=== PATIENT | male | born 1935 | race Caucasian/White ===

== ENCOUNTER 2021-09-12 14:42 | Emergency (ER) | payer MEDICARE, MEDICAID, SELFPAY ==
[2021-09-12 14:43] VITALS: BP 121/103; PULSE 57; RESP 16; TEMP 36.6; O2SAT 100; BMI 34.8
--- NOTE | 2021-09-12 15:02 | EDS_ITS ---
HPI <PEDRITO Perales - Last Filed: 09/12/21 17:01> History of Present Illness Chief Complaint: Constipation Narrative Narrative: 86-year-old male with history of hypertension, hyperlipidemia, atrial fibrillation on Coumadin presents to the emergency department with 3 days of inability to have a bowel movement. Patient states he has having rectal pain, he is not passing gas, and states he is here. Patient has had some like this in the past and needed an enema. He does not take stool softeners daily, patient did take stool softeners, 4 pills the last 2 days however this did not help. Patient denies any fevers, chills, patient denies any rectal bleeding. [facility] <PEDRITO Perales - Last Filed: 09/12/21 17:01> [facility] Medical History (Updated 09/12/21 @ 17:01 by PEDRITO Perales) A-fib High cholesterol HTN (hypertension) Home Medications magnesium citrate 150 ml PO DAILY #296 ml 09/12/21 [Rx Last Taken Unknown] polyethylene glycol 3350 [Miralax] 17 g PO BID #119 g 09/12/21 [Rx Last Taken Unknown] Allergy/AdvReac Type Severity Reaction Status Date / Time No Known Allergies Allergy Verified 09/12/21 14:44 Social History Smoking Status: Never smoker ROS <PEDRITO Perales - Last Filed: 09/12/21 17:01> ROS ED ROS Narrative Constitutional: Negative for fever, chills, weight loss or gain, weakness Eyes: Negative for vision loss, vision change, double vision ENT: Negative for any hearing changes, ringing in the ears, discharge, pain Nose: Negative for any congestion, runny nose, sinus pain, allergies Throat: Negative for any sore throat, swelling, voice changes, Cardiovascular: Negative for any chest pain, tightness, palpitations, racing heartbeat Respiratory: Negative for any cough, sputum production, hemoptysis, shortness of breath, shortness of breath on exertion, Gastrointestinal: Negative for any abdominal pain, nausea, vomiting, diarrhea,blood in stool, blood in vomit. Positive for constipation : Negative for any urinary frequency, incontinence, dysuria, retention, blood in urine Muscle skeletal: Negative for any muscle joint pain, stiffness, myalgias, arthralgias, neck pain, back pain Neurological: Negative for any headache, dizziness, syncope, numbness or tingling Skin: Negative for any rashes, lumps, itching, abrasions, lacerations Psychiatric: Negative for any depression, anxiety, stress, suicidal ideation, homicidal ideation Hematologic: Negative for any easy bruising, excessive bruising, easy bleeding Allergies: Negative for any eczema, hives, rash EXAM <PEDRITO Perales - Last Filed: 09/12/21 17:01> Physical Exam Const Vital Signs: 09/12/21 14:43 09/12/21 17:00 Temperature 97.8 F Temperature Source Temporal Pulse Rate 57 L Respiratory Rate 16 16 Blood Pressure 121/103 H Blood Pressure Mean 109 Pulse Ox 100 Oxygen Delivery Method Room Air Positive well nourished and well developed General Appearance ED: well developed HEENT Negative for trauma Eyes PERRL and EOMs intact bilaterally Neck no lymphadenopathy and supple Chest Wall inspection of chest normal and palpation of chest normal Resp normal respiratory effort and clear to auscultation bilaterally Cardio regular rate and regular rhythm GI normal to inspection, nondistended, normoactive bowel sounds, non-tender, non- distended and no masses GI Narrative: Patient denies any abdominal pain, states most the pain is in his rectal area Auscultation: normoactive bowel sounds Palpation: soft Back/Spine no CVA tenderness Extremity normal to inspection Neuro oriented x3 Sensorium / Orientation: alert Psych mental status grossly normal Skin no rashes or lesions noted <Dr. Geraldine Graham MD - Last Filed: 09/12/21 18:37> Physical Exam Const Vital Signs: 09/12/21 14:43 09/12/21 17:00 Temperature 97.8 F Temperature Source Temporal Pulse Rate 57 L Respiratory Rate 16 16 Blood Pressure 121/103 H Blood Pressure Mean 109 Pulse Ox 100 Oxygen Delivery Method Room Air MDM <PEDRITO Perales - Last Filed: 09/12/21 17:01> [facility] Narrative Medical decision making narrative: Patient appears well, patient appears nontoxic, vital signs are stable. Patient presents emerged part with 3 days of no bowel movement. Patient's physical exam was unremarkable, patient received a KUB abdominal x-ray which did show constipation. I was able to digitally disimpact the patient however due to the stool being so high up, only small amounts were discarded. Patient did receive a soapsuds enema, however due to the patient not being able to hold in the fluid, it was not as successful. Patient states he is cramping, does feel like he has to go, patient will be prescribed magnesium citrate, he will go home follow the instructions and will follow up with PCP. Patient instructed to take MiraLAX daily to prevent this on having in the future. Patient will follow up with his PCP instructed return for any worsening symptoms Radiography Diagnostic Testing: Clinical Impression(s) from Imaging Studies KUB X-Ray 09/12/21 15:07 IMPRESSION: Large amount of retained stool in the sigmoid and rectum with no evidence of bowel obstruction. Multilevel thoracolumbar spondylosis and minimal levoscoliosis. 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 Diffuse osteopenia. Electronically Signed: Carlos Glass MD at 15:42 EDT , <Dr. Geraldine Graham MD - Last Filed: 09/12/21 18:37> MDM Radiography Diagnostic Testing: Clinical Impression(s) from Imaging Studies KUB X-Ray 09/12/21 15:07 IMPRESSION: Large amount of retained stool in the sigmoid and rectum with no evidence of bowel obstruction. Multilevel thoracolumbar spondylosis and minimal levoscoliosis. 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 Diffuse osteopenia. Electronically Signed: Carlos Glass MD at 15:42 EDT , Treatment and Re-Evaluation Narrative: Patient seen and evaluated with VALERIE. I personally interviewed and examined the patient. I was involved in all aspects of patient's orders, interpretation of results, and treatment. Patient presents secondary to constipation. Reports constipation for the past couple of days. No significant abdominal pain. He reports only one prior episode with constipation. Denies recent diet or medication changes. Patient lying in bed no acute distress. Head and neck examination unremarkable. Heart is regular rate and rhythm. Lung sounds are clear. Abdomen is soft and nontender. Active bowel sounds are noted. Abdominal exam reveals stool in the sigmoid and rectum. No evidence of bowel obstruction per my interpretation. Attempted digital disimpaction by nurse practitioner as well as soapsuds enema performed. Patient will use magnesium citrate at home as well. Discharge Plan Triage Chief Complaint: Constipation ED Midlevel Provider: Abner Mcdonald ED Provider: Geraldine Graham Dx/Rx/DC Orders Clinical Impression: Constipation Instructions: Treating Constipation, ED Constipation (Adult) Prescriptions: New magnesium citrate Solution 150 ml PO DAILY Qty: 296 RF: 0 polyethylene glycol 3350 [Miralax] 17 gram/dose powder 17 g PO BID Qty: 119 RF: 0 Primary Care Provider: Yovana Wilson Referrals: Yovana Wilson DO [Primary Care Provider] - Print Language: Armenian Disposition Disposition: Home, Self Care Discharge Date/Time: 09/12/21 17:07
--- NOTE | 2021-09-12 15:07 | RAD_ITS ---
STUDY: X-RAY - ABDOMEN/PELVIS REASON FOR EXAM: Male, 86 years old. constipation TECHNIQUE: 1 view COMPARISON: None. FINDINGS: Please see the impression. RAD/Abdomen Single View IMPRESSION: Large amount of retained stool in the sigmoid and rectum with no evidence of bowel obstruction. Multilevel thoracolumbar spondylosis and minimal levoscoliosis. 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 Diffuse osteopenia. Electronically Signed: Carlos Glass MD at 15:42 EDT ,
[2021-09-12 17:00] VITALS: RESP 16
== END 2021-09-12 17:07 | disposition home or self-care (01) ==
PROVIDERS: Emergency Provider Emergency Medicine; PCP Family Medicine; Visit Provider Emergency Medicine
DX: K59.00 Constipation, unspecified (principal)
CPT/HCPCS: 74018; 99284

== ENCOUNTER 2022-02-27 23:55 | Emergency (ER) | payer MEDICARE, MEDICAID, SELFPAY ==
[2022-02-27 23:56] VITALS: BP 114/77; PULSE 74; RESP 15; TEMP 36.7; O2SAT 97; BMI 27.7
--- NOTE | 2022-02-28 00:24 | EX.ED.DYSGE1 ---
HPI History of Present Illness Chief Complaint: Constipation Informant: patient Narrative Narrative: Patient states he has not been moving his bowels well for 2 or 3 days. He does not think he has had any bowel movement for about 1 day but he is not exactly sure. He has some discomfort at the rectum but no abdominal pain. He is still eating and drinking. No nausea vomiting or fevers. He has had this problem in the past. He took what sounds like a tablespoon of milk of magnesia somewhere earlier today. He took Dulcolax tablets probably 1 or 2 hours ago. He states this is not helped. He is not on a routine bowel regimen although he does have chronic problems with constipation. He is also on Coumadin. He has not had any blood in the stool or bleeding elsewhere. [facility] Medical History A-fib High cholesterol HTN (hypertension) Home Medications magnesium citrate 150 ml PO DAILY #296 mL 09/12/21 [Rx Last Taken Unknown] polyethylene glycol 3350 17 gram/dose oral powder (Miralax) 17 g PO BID #119 grams 09/12/21 [Rx Last Taken Unknown] Allergy/AdvReac Type Severity Reaction Status Date / Time No Known Allergies Allergy Verified 09/12/21 14:44 Social History Smoking Status: Never smoker ROS ROS ED Constitutional Constitutional ED: Denies chills or fever(s) ENT ENT ED: Denies rhinorrhea or sore throat Cardiovascular Cardiovascular: Denies chest pain or palpitations Respiratory/Chest Respiratory/Chest: Denies cough or dyspnea Gastrointestinal Gastrointestinal: Reports constipation; Denies abdominal pain, diarrhea, melena, nausea or vomiting Genitourinary Genitourinary ED: Reports other Details: Denies urinary retention ; Denies dysuria Musculoskeletal Musculoskeletal: Denies back pain Integumentary Denies rash Neurologic Neurologic: Denies headache(s) or weakness Endocrine Endocrinology: Denies polydipsia or polyuria Hematologic/Lymphatic Hematologic/Lymphatic: Reports easy bleeding and easy bruising Allergic/Immunologic Allergic/Immunologic ED: Denies urticaria EXAM Physical Exam Const Vital Signs: 02/27/22 23:56 02/28/22 02:47 Temperature 98.0 F Temperature Source Temporal Pulse Rate 74 76 Respiratory Rate 15 18 Blood Pressure 114/77 Blood Pressure Mean 89 Pulse Ox 97 97 Oxygen Delivery Method Room Air Room Air Positive well nourished and well developed General Appearance ED: well developed and NAD; Negative for cyanotic, diaphoretic or pallor HEENT Reports moist mucous membranes; Denies dry mucous membranes Mouth ED: No dry mucous membranes Mouth: No dry mucous membranes Eyes General Eye ED: Negative for scleral icterus Neck no JVD Chest Wall inspection of chest normal Resp No normal respiratory effort and No clear to auscultation bilaterally Auscultation: Negative for rales, rhonchi, wheezes or diminished lung sounds Cardio regular rate and regular rhythm Rate: other Other Details: He has a history of atrial fibrillation but does sound regular on exam. GI normal to inspection, nondistended, normoactive bowel sounds, non-tender and non-distended GI Narrative: Normal bowel sounds, soft, nontender. No mass. Very benign abdomen. Back/Spine no CVA tenderness Extremity General Extremety ED: Negative for tenderness Neuro Sensorium / Orientation: alert Psych mental status grossly normal Skin General Skin Exam: Negative for pallor MDM MDM MDM Narrative Medical decision making narrative: Procedure: Rectal stool disimpaction and enema: Discussed with patient options. We did do a rectal exam. There are some firm stool. It is really just near the tip of the finger. I really cannot manually get this out although we tried a bit. I was able to pass a lubricated warm tube for a soapsuds enema up a bit past the tip of the stool. This was infused intermittently. He is holding this in at this time. There has been some that leaked out. There is no bleeding at any time. Patient will be rechecked. Patient was gotten up to the bedside commode. He had a very large bowel movement. He feels markedly better. His abdomen is still benign. Is recommend that he stay on a bowel regimen with Dulcolax or MiraLAX daily for the next few days and then slowly wean. If he develops pain fevers or blood in the stool he should return. There was no blood in the bowel movement here. Radiography Diagnostic Testing: Clinical Impression(s) from Imaging Studies KUB X-Ray 02/28/22 00:30 IMPRESSION: Nonobstructive bowel gas pattern. Mild increased stool. Electronically Signed: Jin Nichols MD at 0:46 EDT , Procedures Other Procedures Procedure(s): See medical decision making Discharge Plan Triage Chief Complaint: Constipation ED Provider: Franky Miner Dx/Rx/DC Orders Clinical Impression: Constipation Instructions: ED Constipation (Adult) Prescriptions: No Action magnesium citrate Solution 150 ml PO DAILY Qty: 296 0RF polyethylene glycol 3350 [Miralax] 17 gram/dose powder 17 g PO BID Qty: 119 0RF Primary Care Provider: Yovana Wilson Referrals: Yovana Wilson DO [Primary Care Provider] - 1-2 Days if not improving Activity Restrictions/Additional Instructions: Stay on a stool softener or MiraLAX for the next few days to a week. Slowly wean off. Disposition Disposition: Home, Self Care
--- NOTE | 2022-02-28 00:30 | RAD_ITS ---
STUDY: X-RAY - ABDOMEN/PELVIS REASON FOR EXAM: Male, 86 years old. constipation TECHNIQUE: Single AP view of the abdomen / pelvis. COMPARISON: 322. FINDINGS: Normal visualized lung bases. Nonobstructive bowel gas pattern. Evaluation for free air is limited on supine radiographs. Mild increased stool. Degenerative changes in the bilateral hips and visualized spine, similar compared to the prior. No acute osseous abnormality. RAD/Abdomen Single View IMPRESSION: Nonobstructive bowel gas pattern. Mild increased stool. Electronically Signed: Jin Nichols MD at 0:46 EDT ,
[2022-02-28 02:47] VITALS: PULSE 76; RESP 18; O2SAT 97
[2022-02-28 03:01] VITALS: BP 110/65; PULSE 78; RESP 18; O2SAT 96
== END 2022-02-28 05:31 | disposition home or self-care (01) ==
PROVIDERS: Emergency Provider Emergency Medicine; PCP Family Medicine; Visit Provider Emergency Medicine
DX: K59.00 Constipation, unspecified (principal)
CPT/HCPCS: 74018; 99285

== ENCOUNTER → 2022-12-14 | Outpatient (CLI) | payer MEDICARE, MEDICAID, SELFPAY ==
[2022-12-14 11:26] LABS: Absolute Lymphocyte Count 0.65 X10^3/uL (0.83-4.51); Absolute Neutrophil Count 5.9 X10^3/uL (2.0-7.7); Basophil# 0.05 X10^3/uL; Basophil% 0.7 % (0-1); Eosinophil# 0.07 X10^3/uL; Hematocrit 47.9 % (40-54); Hemoglobin 15.4 g/dL (13.0-16.5); Lymphocyte # 0.65 X10^3/ul (0.83-4.51); Lymphocyte % 8.8 % (19-41); Mean Corp Hgb Conc 32.2 g/dL (32-36); Mean Corpuscular Hgb 29.6 pg (27.0-32.0); Mean Corpuscular Volume 92.1 fL (80-94); Mean Platelet Vol. 10.2 fl (6.2-12.0); Monocyte# 0.69 X10^3/uL; Monocyte% 9.4 % (0-10); NRBC Flagged by Analyzer 0 % (0-5); Neutrophil # 5.86 X10^3/uL (2.7-7.7); Neutrophil % 79.6 % (47-70); Platelet Count 271 K/mm3 (150-450); RBC Distribution Width CV 14.8 % (11.6-14.6); RBC Distribution Width SD 50.4 fl (35.1-43.9); White Blood Count 7.4 K/mm3 (4.4-11.0)
[2022-12-14 11:35] LABS: International Normalized Ratio 1.9
[2022-12-14 12:00] LABS: Anion Gap 6 (5-15); BUN 43 mg/dL (7-18); BUN/Creat Ratio 20.3 RATIO (10-20); Calcium,Total 9.2 mg/dL (8.5-10.1); Chloride 102 mmol/L (98-107); Creatinine, Serum 2.12 mg/dL (0.70-1.30); EST Glomerular Filtration Rate 32 mL/min (>60); Est Glom Filt Rate - Afr Amer 38 mL/min (>60); Glucose 85 mg/dL (74-106); Potassium 3.6 mmol/L (3.5-5.1); Sodium Level 138 mmol/L (136-145); Thyroid Stim Hormone (TSH) 1.42 uIU/mL (0.358-3.74)
== END | disposition home or self-care (01) ==
LOC: LAB 10:56
PROVIDERS: PCP Family Medicine; Referring Provider Internal Medicine Cardiovascular Disease; Visit Provider Internal Medicine Cardiovascular Disease
DX: E78.5 Hyperlipidemia, unspecified (principal); I50.32 Chronic diastolic (congestive) heart failure; I48.0 Paroxysmal atrial fibrillation; R06.09 Other forms of dyspnea
CPT/HCPCS: 36415; 80048; 84443; 85025; 85610

== ENCOUNTER 2023-04-15 07:56 | Emergency (ER) | payer MEDICARE, MEDICAID, SELFPAY ==
[2023-04-15 07:58] VITALS: BP 105/76; PULSE 71; RESP 16; TEMP 35.6; O2SAT 98; BMI 29.0
--- NOTE | 2023-04-15 08:04 | EX.ED.DYSGE1 ---
HPI History of Present Illness Chief Complaint: Lower Extremity Injury Informant: patient Onset/Context/Timing Onset: Yesterday Narrative Narrative: Patient presents secondary to left foot pain and swelling. He is at [facility] and they had a traveling cabinetmaker apprentice that came out yesterday and trimmed his toenails. He states following that he started getting pain in his left great toe and this morning his left foot is slightly swollen. He is currently on Coumadin for history of DVT. [facility] Medical History BPH (benign prostatic hyperplasia) Chronic diastolic (congestive) heart failure CKD (chronic kidney disease) COVID-19 VAZQUEZ (dyspnea on exertion) Essential hypertension History of DVT (deep vein thrombosis) History of pulmonary embolism Hyperlipidemia Nontoxic diffuse goiter Osteoarthritis Paroxysmal atrial fibrillation Home Medications acetaminophen 325 mg tablet 650 mg PO Q4H PRN 12/05/22 [History Last Taken Unknown] bisacodyl 10 mg rectal suppository 10 mg ME DAILY PRN 12/05/22 [History Last Taken Unknown] bumetanide 1 mg tablet 1 mg PO DAILY 12/05/22 [History Last Taken Unknown] docusate sodium 100 mg capsule 100 mg PO BID 12/05/22 [History Last Taken Unknown] dutasteride 0.5 mg capsule 0.5 mg PO DAILY 12/05/22 [History Last Taken Unknown] magnesium hydroxide 400 mg/5 mL oral suspension (Milk of Magnesia) 15 ml PO Q3-4D PRN 12/05/22 [History Last Taken Unknown] metolazone 2.5 mg tablet 2.5 mg PO DAILY 12/05/22 [History Last Taken Unknown] metoprolol succinate 50 mg tablet,extended release 24 hr 50 mg PO DAILY 12/05/22 [History Last Taken Unknown] oxybutynin chloride 5 mg tablet,extended release 24 hr 5 mg PO DAILY 12/05/22 [History Last Taken Unknown] polyethylene glycol 3350 17 gram/dose oral powder (Miralax) 34 g PO DAILY PRN 12/05/22 [History Last Taken Unknown] potassium chloride 20 mEq tablet,extended release 20 meq PO DAILY 12/05/22 [History Last Taken Unknown] tamsulosin 0.4 mg capsule 0.4 mg PO DAILY 12/05/22 [History Last Taken Unknown] vitamins A,C,U-ykyz-crlrjc 4,296 mcg-226 mg-90 mg capsule (PreserVision AREDS) 1 cap PO BID 12/05/22 [History Last Taken Unknown] warfarin 2 mg tablet 2 mg PO QMWF 12/05/22 [History Last Taken Unknown] warfarin 3 mg tablet 3 mg PO 4XW 12/05/22 [History Last Taken Unknown] dapagliflozin propanediol 5 mg tablet (Farxiga) 5 mg PO DAILY #30 tabs 12/14/22 [Rx Last Taken Unknown] cephalexin 500 mg capsule 500 mg PO Q6 #40 CAPSULES 04/15/23 [Rx Last Taken Unknown] Allergy/AdvReac Type Severity Reaction Status Date / Time No Known Allergies Allergy Verified 04/15/23 08:02 Surgical History History of appendectomy History of bilateral cataract extraction History of bladder stone History of carpal tunnel release History of prostate surgery History of radiofrequency ablation (RFA) procedure for cardiac arrhythmia (11/17/20) Social History Smoking Status: Never smoker alcohol intake: current ROS ROS ED Constitutional Constitutional ED: Denies chills or fever(s) Eyes Eyes: Denies change in vision ENT ENT ED: Denies rhinorrhea or sore throat Cardiovascular Cardiovascular: Denies chest pain or palpitations Respiratory/Chest Respiratory/Chest: Denies cough or dyspnea Gastrointestinal Gastrointestinal: Denies abdominal pain or vomiting Musculoskeletal Musculoskeletal: Reports arthralgias Neurologic Neurologic: Denies headache(s) Psychiatric Psychiatric: Denies anxiety or depression EXAM Physical Exam Const Vital Signs: 04/15/23 07:58 Temperature 96.0 F L Temperature Source Temporal Pulse Rate 71 Respiratory Rate 16 Blood Pressure 105/76 Blood Pressure Mean 85 Pulse Ox 98 Oxygen Delivery Method Room Air Positive well nourished and well developed General Appearance ED: well developed HEENT Reports moist mucous membranes Eyes EOMs intact bilaterally Chest Wall inspection of chest normal and palpation of chest normal Resp normal respiratory effort and clear to auscultation bilaterally Cardio regular rate and regular rhythm GI non-tender Palpation: soft Extremity Extremity Narrative: Minimal edema noted to the left foot. Strong distal pulses. No erythema or sign of cellulitis. No focal abscess. No open wounds. Neuro oriented x3 and no sensory deficits noted Motor Exam: strength 5/5 throughout Psych mental status grossly normal Skin no rashes or lesions noted MDM MDM MDM Narrative Medical decision making narrative: Labwork obtained to evaluate for leukocytosis, anemia, and electrolyte derangement. Left foot x-ray obtained to evaluate for any underlying bony injury, soft tissue edema, air in the soft tissue. History & Record Review Discussion w/independent historian: Patient Lab Data Attestation: I reviewed the patient's lab results. Labs: Laboratory Results - last 24 hr 04/15/23 08:05 WBC 8.6 RBC 5.35 Hgb 15.7 Hct 49.2 MCV 92.0 MCH 29.3 MCHC 31.9 L RDW Std Deviation 52.3 H RDW Coeff of [place] 15.5 H Plt Count 270 MPV 9.7 Immature Gran % (Auto) 0.500 Neut % (Auto) 78.2 H Lymph % (Auto) 9.3 L [place] % (Auto) 9.0 Eos % (Auto) 2.2 Baso % (Auto) 0.8 Absolute Neuts (auto) 6.7 Absolute Lymphs (auto) 0.80 L Nucleated RBC % 0 PT 29.4 H INR 2.8 Sodium 141 Potassium 3.4 L Chloride 100 Carbon Dioxide 31.0 Anion Gap 10 BUN 44 H Creatinine 2.28 H Estim Creat Clear Calc 25.23 Est GFR (MDRD) Af Amer 35 L Est GFR (MDRD) Non-Af 29 L BUN/Creatinine Ratio 19.3 Glucose 98 Calcium 9.1 Radiography Diagnostic Testing: Clinical Impression(s) from Imaging Studies Foot X-Ray 04/15/23 08:32 IMPRESSION: No bone or joint abnormality. Electronically Signed: Carlos Enrique Broderick MD at 9:07 EDT , Treatment and Re-Evaluation :: CBC was normal white count 8.6 with 78% neutrophils. Hemoglobin is normal at 15.7. Chemistry studies reveal slightly low potassium at 3.4. BUN is 44 and creatinine is 2.28 which is consistent with his prior values. INR is therapeutic at 2.8. Left foot x-rays per my interpretation reveal no acute bony injury. No subcutaneous air. Radiology interpretation is reviewed and agrees. Patient's feet bilaterally have dried stool on them. Patient's feet are soaked and cleansed. Given that his left great toe is the area of largest pain this area was thoroughly cleansed and antibiotic ointment placed along the nail. Dressing is applied. Patient be placed on Keflex for early skin infection as he developed pain and swelling after having his toenails clipped. Discharge Plan Triage Chief Complaint: Lower Extremity Injury ED Provider: Geraldine Graham Dx/Rx/DC Orders Clinical Impression: Cellulitis, Inflammation of toenail of left foot Instructions: ED Cellulitis Prescriptions: New cephalexin 500 mg capsule 500 mg PO Q6 Qty: 40 0RF No Action bumetanide 1 mg tablet 1 mg PO DAILY docusate sodium 100 mg capsule 100 mg PO BID dutasteride 0.5 mg capsule 0.5 mg PO DAILY metoprolol succinate 50 mg tablet extended release 24 hr 50 mg PO DAILY oxybutynin chloride 5 mg tablet extended release 24hr 5 mg PO DAILY potassium chloride 20 mEq tablet extended release 20 meq PO DAILY PreserVision AREDS 4,296 mcg-226 mg-90 mg capsule 1 cap PO BID metolazone 2.5 mg tablet 2.5 mg PO DAILY tamsulosin 0.4 mg capsule 0.4 mg PO DAILY warfarin 3 mg tablet 3 mg PO 4XW warfarin 2 mg tablet 2 mg PO QMWF polyethylene glycol 3350 [Miralax] 17 gram/dose powder 34 g PO DAILY PRN magnesium hydroxide [Milk of Magnesia] 400 mg/5 mL suspension 15 ml PO Q3-4D PRN bisacodyl 10 mg suppository 10 mg ME DAILY PRN acetaminophen 325 mg tablet 650 mg PO Q4H PRN Farxiga 5 mg tablet 5 mg PO DAILY Qty: 30 11RF Primary Care Provider: Yovana Wilson Referrals: Yovana Wilson DO [Primary Care Provider] - 1 Week Disposition Disposition: Home, Self Care
[2023-04-15 08:14] LABS: Absolute Neutrophil Count 6.7 X10^3/uL (2.0-7.7); Basophil# 0.07 X10^3/uL; Basophil% 0.8 % (0-1); Eosinophil# 0.19 X10^3/uL; Eosinophils% 2.2 % (0-5); Hematocrit 49.2 % (40-54); Hemoglobin 15.7 g/dL (13.0-16.5); Lymphocyte % 9.3 % (19-41); Mean Corp Hgb Conc 31.9 g/dL (32-36); Mean Corpuscular Hgb 29.3 pg (27.0-32.0); Mean Platelet Vol. 9.7 fl (6.2-12.0); Monocyte# 0.77 X10^3/uL; NRBC Flagged by Analyzer 0 % (0-5); Neutrophil # 6.72 X10^3/uL (2.7-7.7); Neutrophil % 78.2 % (47-70); Platelet Count 270 K/mm3 (150-450); RBC Distribution Width CV 15.5 % (11.6-14.6); RBC Distribution Width SD 52.3 fl (35.1-43.9); Red Blood Count 5.35 M/mm3 (4.6-6.2); White Blood Count 8.6 K/mm3 (4.4-11.0)
[2023-04-15 08:27] LABS: Anion Gap 10 (5-15); BUN 44 mg/dL (7-18); BUN/Creat Ratio 19.3 RATIO (10-20); Calcium,Total 9.1 mg/dL (8.5-10.1); Chloride 100 mmol/L (98-107); Creatinine, Serum 2.28 mg/dL (0.70-1.30); EST Glomerular Filtration Rate 29 mL/min (>60); Est Glom Filt Rate - Afr Amer 35 mL/min (>60); Estimated Creatinine Clearance 25.23 ml/min; Glucose 98 mg/dL (74-106); Potassium 3.4 mmol/L (3.5-5.1); Sodium Level 141 mmol/L (136-145)
--- NOTE | 2023-04-15 08:32 | RAD_ITS ---
EXAM: XR LEFT FOOT COMPLETE, 3 OR MORE VIEWS CLINICAL INDICATION: pain TECHNIQUE: Frontal, lateral and oblique views of the left foot. COMPARISON: No relevant prior studies available. FINDINGS: BONES/JOINTS: No acute abnormality. SOFT TISSUES: Dorsal soft tissue prominence. No radiopaque foreign body. RAD/Foot min 3 Views IMPRESSION: No bone or joint abnormality. Electronically Signed: Carlos Enrique Broderick MD at 9:07 EDT ,
[2023-04-15 09:14] LABS: International Normalized Ratio 2.8; Prothrombin Time (Protime)PT. 29.4 SECONDS (11.7-14.9)
[2023-04-15] MEDS: Cephalexin 250 MG Capsule 500 MG PO (09:35)
[2023-04-15 09:36] VITALS: BP 106/68; PULSE 99; O2SAT 98
--- NOTE | 2023-04-15 09:39 | NURSING ---
CALLED [facility], ETA IS 20 MIN
--- NOTE | 2023-04-15 10:31 | NURSING ---
CALLED ABOUT [facility], ANOTHER 10 TO 15 MIN
== END 2023-04-15 10:56 | disposition home or self-care (01) ==
PROVIDERS: Emergency Provider Emergency Medicine; PCP Family Medicine; Visit Provider Emergency Medicine
DX: L03.032 Cellulitis of left toe (principal); I13.0 Hypertensive heart and chronic kidney disease with heart failure and stage 1 through stage 4 chronic kidney disease, or unspecified chronic kidney disease; I50.32 Chronic diastolic (congestive) heart failure; I48.0 Paroxysmal atrial fibrillation; N18.9 Chronic kidney disease, unspecified; E78.5 Hyperlipidemia, unspecified; Z86.718 Personal history of other venous thrombosis and embolism; Z79.01 Long term (current) use of anticoagulants; N40.0 Benign prostatic hyperplasia without lower urinary tract symptoms; Z79.899 Other long term (current) drug therapy; Z90.49 Acquired absence of other specified parts of digestive tract; Z98.41 Cataract extraction status, right eye; Z98.42 Cataract extraction status, left eye
CPT/HCPCS: 73630; 80048; 85025; 85610; 99285; A4216

== ENCOUNTER 2023-09-25 12:48 | Inpatient (IN) | payer MEDICARE, MEDICAID, SELFPAY ==
[2023-09-25] VITALS (12 sets, daily range): BP systolic 94–106; BP diastolic 67–87; PULSE 69–78; RESP 16–20; TEMP 35.8–36.6; O2SAT 94–99; BMI 29.0; BMI 30.1
--- NOTE | 2023-09-25 13:03 | EKG12_ITS ---
Test Reason : EDEMA Blood Pressure : / mmHG Vent. Rate : 075 BPM Atrial Rate : 075 BPM P-R Int : 258 ms QRS Dur : 158 ms QT Int : 466 ms P-R-T Axes : 043 265 052 degrees QTc Int : 520 ms Sinus rhythm with 1st degree A-V block Right bundle branch block Abnormal ECG Confirmed by CIPRIANO GR, NIKOLE ([id number]), editorial director NELSON FOX ([id number]) on 09/26/2023 8:23:09 AM Referred By: Confirmed By:NIKOLE COTA MD
--- NOTE | 2023-09-25 13:04 | EX.ED.DYSGE1 ---
HPI History of Present Illness Chief Complaint: Edema Detail of Chief Complaint: Leg edema and shortness of breath Informant: patient Narrative Narrative: Patient presents to the emergency department via EMS from assisted living facility with complaint of leg edema. Patient states his legs have been swollen for about a month left worse than right. He complains of exertional dyspnea. He denies fever or cough. He denies chest pain. Patient on Coumadin for history of PE and history of A-fib. Patient has history of CHF as well as chronic kidney disease. [facility] Medical History BPH (benign prostatic hyperplasia) Chronic diastolic (congestive) heart failure CKD (chronic kidney disease) COVID-19 VAZQUEZ (dyspnea on exertion) Essential hypertension History of DVT (deep vein thrombosis) History of pulmonary embolism Hyperlipidemia Nontoxic diffuse goiter Osteoarthritis Paroxysmal atrial fibrillation Home Medications acetaminophen 325 mg tablet 650 mg PO Q4H PRN fever or pain 12/05/22 [History Last Taken Unknown] bisacodyl 10 mg rectal suppository 10 mg [place] DAILY PRN constipation 12/05/22 [History Last Taken Unknown] bumetanide 1 mg tablet 1 mg PO DAILY 12/05/22 [History Last Taken 09/23/23] docusate sodium 100 mg capsule 100 mg PO BID 12/05/22 [History Last Taken 09/24/23] dutasteride 0.5 mg capsule 0.5 mg PO DAILY 12/05/22 [History Last Taken 09/23/23] magnesium hydroxide 400 mg/5 mL oral suspension (Milk of Magnesia) 15 ml PO Q3-4D PRN constipation 12/05/22 [History Last Taken Unknown] metolazone 2.5 mg tablet 2.5 mg PO UD 12/05/22 [History Last Taken Unknown] metoprolol succinate 50 mg tablet,extended release 24 hr 50 mg PO DAILY 12/05/22 [History Last Taken 09/23/23] oxybutynin chloride 5 mg tablet,extended release 24 hr 5 mg PO BID 12/05/22 [History Last Taken 09/24/23] polyethylene glycol 3350 17 gram/dose oral powder (Miralax) 34 g PO DAILY PRN constipation 12/05/22 [History Last Taken Unknown] potassium chloride 20 mEq tablet,extended release 20 meq PO DAILY 12/05/22 [History Last Taken 09/22/23] tamsulosin 0.4 mg capsule 0.4 mg PO DAILY 12/05/22 [History Last Taken 09/24/23] vitamins A,C,I-ncwc-moqcwe 4,296 mcg-226 mg-90 mg capsule (PreserVision AREDS) 1 cap PO BID 12/05/22 [History Last Taken 09/24/23] warfarin 2 mg tablet 2 mg PO TUTH 12/05/22 [History Last Taken 09/21/23] warfarin 3 mg tablet 3 mg PO SUMOWEFRSA 12/05/22 [History Last Taken 09/24/23] empagliflozin 10 mg tablet (Jardiance) 10 mg PO DAILY #30 tabs 07/13/23 [Rx Last Taken 09/23/23] dapagliflozin propanediol 5 mg tablet 5 mg PO DAILY 09/25/23 [History Last Taken 09/24/23] fluticasone propionate 50 mcg/actuation nasal spray,suspension 1 spray intranasal DAILY 09/25/23 [History Last Taken 09/23/23] Allergy/AdvReac Type Severity Reaction Status Date / Time No Known Allergies Allergy Verified 09/25/23 13:07 Surgical History History of appendectomy History of bilateral cataract extraction History of bladder stone History of carpal tunnel release History of prostate surgery History of radiofrequency ablation (RFA) procedure for cardiac arrhythmia (11/17/20) Social History Smoking Status: Never smoker alcohol intake: current ROS ROS ED Review of Systems ROS Unobtainable: other Constitutional Constitutional ED: Reports lethargy; Denies chills, fever(s), sweats or weight loss Eyes Eyes: Denies blurry vision, change in vision or diplopia ENT ENT ED: Denies rhinorrhea or sore throat Cardiovascular Cardiovascular: Denies chest pain, orthopnea or racing heartbeat Respiratory/Chest Respiratory/Chest: Reports dyspnea and dyspnea on exertion; Denies cough, orthopnea or sputum Gastrointestinal Gastrointestinal: Denies abdominal pain, diarrhea, nausea or vomiting Genitourinary Genitourinary ED: Denies dysuria, hematuria or urinary frequency Musculoskeletal Musculoskeletal: Denies arthralgias, back pain, myalgias or neck pain Integumentary Reports other Details: Leg edema ; Denies abscess, Abrasions or rash Neurologic Neurologic: Denies headache(s) or weakness Psychiatric Psychiatric: Denies anxiety, depression or suicidal thoughts Endocrine Endocrinology: Denies polydipsia, polyphagia or polyuria Hematologic/Lymphatic Hematologic/Lymphatic: Denies easy bleeding, easy bruising or lymphadenopathy Allergic/Immunologic Allergic/Immunologic ED: Denies mouth swelling, tongue swelling or urticaria EXAM Physical Exam Const Vital Signs: 09/25/23 12:48 09/25/23 12:57 09/25/23 12:57 Temperature 96.9 F L 96.9 F L 96.9 F L Temperature Source Oral Oral Oral Pulse Rate 77 77 77 Respiratory Rate 20 H 20 H 20 H Respiratory Effort Respiratory Pattern Blood Pressure 102/84 H 102/84 H 102/84 H Blood Pressure Mean 90 90 90 Pulse Ox 96 96 96 Oxygen Delivery Method Room Air Room Air Room Air 09/25/23 12:59 09/25/23 13:06 09/25/23 14:15 Temperature Temperature Source Pulse Rate 75 Respiratory Rate 20 H Respiratory Effort Short of Breath Labored Respiratory Pattern Tachypnea Blood Pressure 102/81 H Blood Pressure Mean 88 Pulse Ox 94 96 Oxygen Delivery Method Room Air Room Air 09/25/23 14:16 09/25/23 14:41 Temperature 97.8 F Temperature Source Temporal Pulse Rate 76 74 Respiratory Rate 20 H 18 Respiratory Effort Respiratory Pattern Blood Pressure 102/81 H 105/85 H Blood Pressure Mean 88 91 Pulse Ox 96 96 Oxygen Delivery Method Room Air Room Air Positive well nourished and well developed General Appearance ED: well developed and NAD HEENT Reports TM's clear and moist mucous membranes normocephalic and atraumatic; Negative for trauma or tenderness Tympanic Membrane ED: Yes TM's clear Eyes PERRL and EOMs intact bilaterally General Eye ED: Negative for pale conjunctiva or scleral icterus Neck no lymphadenopathy, supple and no JVD General: Negative for tenderness Chest Wall inspection of chest normal and palpation of chest normal Chest: Negative for tenderness Resp normal respiratory effort and clear to auscultation bilaterally Resp Narrative: Rales in the right base with diminished breath sounds in the right lower lobe Effort and Inspection: Negative for respiratory distress or pain with movement Auscultation: rales and diminished lung sounds; Negative for rhonchi or wheezes Cardio regular rate, regular rhythm, S1 normal heart sound, S2 normal heart sound and no murmurs Peripheral Pulses: pulses 2+ throughout GI normal to inspection, nondistended, normoactive bowel sounds, soft to palpation, non-tender, non-distended and no masses Back/Spine no CVA tenderness and no thoracic nor lumbar tenderness Extremity Extremity Narrative: +2 edema to both lower extremities General Extremety ED: Negative for edema General Extremity: Negative for edema Neuro oriented x3, CN's II-XII intact bilaterally, no sensory deficits noted and gait normal Sensorium / Orientation: awake, alert, oriented to person, oriented to place and oriented to time Motor Exam: strength 5/5 throughout and strength abnormal Psych mental status grossly normal Skin no rashes or lesions noted and no wounds MDM MDM MDM Narrative Medical decision making narrative: Patient presents with leg edema and exertional dyspnea. History of CHF. He has leg edema. IV line established. CBC with differential white count 6.5 with hemoglobin of 15 and platelet count of 275. Chemistries unremarkable. INR was 6.6. BUN 49 creatinine 2.57. BNP was elevated at 1567. Troponin was 35. With ambulation department patient's O2 sat went from 99% to 91% but he could not tolerate walking very far without becoming extremely symptomatic and dyspneic. Patient became off balance. Lab Data Attestation: I reviewed the patient's lab results. Labs: Laboratory Results - last 24 hr 09/25/23 12:55 WBC 6.5 RBC 5.24 Hgb 15.0 Hct 48.5 MCV 92.6 MCH 28.6 MCHC 30.9 L RDW Std Deviation 53.6 H RDW Coeff of Chacho 16.0 H Plt Count 276 MPV 10.1 Immature Gran % (Auto) 0.300 Neut % (Auto) 73.2 H Lymph % (Auto) 11.7 L Clarke % (Auto) 7.4 Eos % (Auto) 6.5 H Baso % (Auto) 0.9 Absolute Neuts (auto) 4.8 Absolute Lymphs (auto) 0.76 L Nucleated RBC % 0 PT 57.1 H INR 6.6 H* Sodium 136 Potassium 4.8 Chloride 105 Carbon Dioxide 24.0 Anion Gap 7 BUN 49 H Creatinine 2.57 H Est GFR (MDRD) Af Amer 31 L Est GFR (MDRD) Non-Af 25 L BUN/Creatinine Ratio 19.1 Glucose 127 H Calcium 9.4 Troponin I High Sens 35 B-Natriuretic Peptide 1567.4 H Radiography Diagnostic Testing: Clinical Impression(s) from Imaging Studies Chest X-Ray 09/25/23 13:10 IMPRESSION: Hyperinflation. Blunting of the right costophrenic angle with mild increased markings at the right lung base suggestive of either linear atelectasis and/or scarring. Electronically Signed: Brandon Granda MD at 13:55 EDT , 1 view chest x-ray obtained interpreted by myself no evidence of infiltrate or pneumothorax or acute disease process. Radiology felt there was hyperinflation and blunting of the right costophrenic angle with mild increased markings at the right lung base suggestive of either atelectasis or scarring. EKG Initial EKG: Attestation: I personally reviewed and interpreted this EKG as follows: Comments: Sinus rhythm with rate of 75 bpm with first-degree AV block and a right bundle branch block Discharge Plan Dx/Rx/DC Orders Clinical Impression: Acute dyspnea, Chronic kidney disease, CHF exacerbation Disposition Disposition: Acute Care [facility]
--- NOTE | 2023-09-25 13:10 | RAD_ITS ---
STUDY: X-RAY CHEST REASON FOR EXAM: Male, 88 years old. Shortness of breath. Bilateral lower extremity edema. TECHNIQUE: Single AP portable view of the chest. COMPARISON: None. FINDINGS: EKG electrodes are seen. Hyperinflation. Blunting of the right costophrenic angle with mild increased markings at the right lung base suggestive of a atelectasis and/or scarring. There is mild cardiac enlargement. Normal mediastinum and manan. Normal visualized pulmonary arteries. There is atherosclerotic tortuosity of the aortic arch and descending thoracic aorta. There are diffuse degenerative changes of the visualized thoracic spine. Normal visualized ribs, clavicles, and shoulders. There is no demonstrated abnormality of the visualized soft tissue structures of the upper abdomen. RAD/Chest 1 View (Portable) IMPRESSION: Hyperinflation. Blunting of the right costophrenic angle with mild increased markings at the right lung base suggestive of either linear atelectasis and/or scarring. Electronically Signed: Brandon Granda MD at 13:55 EDT ,
[2023-09-25 13:28] LABS: Absolute Lymphocyte Count 0.76 X10^3/uL (0.83-4.51); Absolute Neutrophil Count 4.8 X10^3/uL (2.0-7.7); Basophil# 0.06 X10^3/uL; Basophil% 0.9 % (0-1); Eosinophil# 0.42 X10^3/uL; Eosinophils% 6.5 % (0-5); Hematocrit 48.5 % (40-54); Lymphocyte # 0.76 X10^3/ul (0.83-4.51); Lymphocyte % 11.7 % (19-41); Mean Corp Hgb Conc 30.9 g/dL (32-36); Mean Corpuscular Hgb 28.6 pg (27.0-32.0); Mean Corpuscular Volume 92.6 fL (80-94); Mean Platelet Vol. 10.1 fl (6.2-12.0); Monocyte# 0.48 X10^3/uL; Monocyte% 7.4 % (0-10); NRBC Flagged by Analyzer 0 % (0-5); Neutrophil # 4.76 X10^3/uL (2.7-7.7); Neutrophil % 73.2 % (47-70); Platelet Count 276 K/mm3 (150-450); RBC Distribution Width SD 53.6 fl (35.1-43.9); Red Blood Count 5.24 M/mm3 (4.6-6.2); White Blood Count 6.5 K/mm3 (4.4-11.0)
[2023-09-25 13:36] LABS: International Normalized Ratio 6.6; Prothrombin Time (Protime)PT. 57.1 SECONDS (11.7-14.9)
[2023-09-25 13:45] LABS: Anion Gap 7 (5-15); BUN 49 mg/dL (7-18); BUN/Creat Ratio 19.1 RATIO (10-20); Calcium,Total 9.4 mg/dL (8.5-10.1); Chloride 105 mmol/L (98-107); Creatinine, Serum 2.57 mg/dL (0.70-1.30); EST Glomerular Filtration Rate 25 mL/min (>60); Est Glom Filt Rate - Afr Amer 31 mL/min (>60); Glucose 127 mg/dL (74-106); Potassium 4.8 mmol/L (3.5-5.1); Sodium Level 136 mmol/L (136-145); Troponin-I HS 35 pg/mL (3.0-78.0)
[2023-09-25 13:54] LABS: BNP,B-Type NATRIURETIC PEPTIDE 1567.4 pg/mL (0-100)
[2023-09-25] MEDS: Furosemide 100 MG/10 ML Vial 80 MG IV (14:38)
--- NOTE | 2023-09-25 14:57 | PCM.HP.STD ---
HPI - General General Date of Admission: 09/25/23 Date of Service: 09/25/23 Chief Complaint: Dyspnea, weight gain, increased LE edema. HPI Narrative The patient is an 88 y/o M w/ PMHx: Chew tobacco use, Allergic rhinitis, CKD stage IV, HTN, HLD, Hx VTE (DVT, PE), Chronic HFrEF, BPH, PAF s/p RFA who presents to the [facility] ED on 09/25/23 with history of increasing lower extremity swelling, orthopnea, increasing weight gain and dyspnea with no fever cough however worsening prompting eventual ED evaluation. In the ED he does note some dyspnea even at rest but states it is significantly worse with any activity attempts. He notes that he does take his medications however recently in the last 2 weeks they did stop his metolazone but he cannot clarify why. Workup in the ED included T96.9, heart rate 74, BP 102/84, respiratory rate 20, 96% on room air, CBC with WBC 6.5, hemoglobin 15, platelet 276 with lymphopenia, coags with INR 6.6, PT 57.1, BMP with BUN/creatinine 49/2.57, GFR 25, glucose 127, troponin 35, BNP 1567.4, chest x-ray with hyperinflation, blunting right costophrenic angle with mild increased markings in the right lung base suggestive of either linear atelectasis and/or scarring, EKG with sinus rhythm with first-degree AV block with right bundle branch block with no acute evidence of ischemia. In the ED patient is started Lasix 80 mg IV x 1. [facility] Medical History (Updated 09/25/23 @ 17:[address] Krista Alston MD) Anxiety and depression Atrial fibrillation BPH (benign prostatic hyperplasia) BPH (benign prostatic hyperplasia) Chewing tobacco dependence CKD (chronic kidney disease), stage IV COVID-19 Essential hypertension HFrEF (heart failure with reduced ejection fraction) History of DVT (deep vein thrombosis) History of pulmonary embolism Hyperlipidemia Kidney disease Nontoxic diffuse goiter Osteoarthritis Paroxysmal atrial fibrillation Home Medications acetaminophen 325 mg tablet 650 mg PO Q4H PRN fever or pain 12/05/22 [History Last Taken Unknown] bisacodyl 10 mg rectal suppository 10 mg [place] DAILY PRN constipation 12/05/22 [History Last Taken Unknown] bumetanide 1 mg tablet 1 mg PO DAILY 12/05/22 [History Last Taken 09/23/23] docusate sodium 100 mg capsule 100 mg PO BID 12/05/22 [History Last Taken 09/24/23] dutasteride 0.5 mg capsule 0.5 mg PO DAILY 12/05/22 [History Last Taken 09/23/23] magnesium hydroxide 400 mg/5 mL oral suspension (Milk of Magnesia) 15 ml PO Q3-4D PRN constipation 12/05/22 [History Last Taken Unknown] metolazone 2.5 mg tablet 2.5 mg PO UD 12/05/22 [History Last Taken Unknown] metoprolol succinate 50 mg tablet,extended release 24 hr 50 mg PO DAILY 12/05/22 [History Last Taken 09/23/23] oxybutynin chloride 5 mg tablet,extended release 24 hr 5 mg PO BID 12/05/22 [History Last Taken 09/24/23] polyethylene glycol 3350 17 gram/dose oral powder (Miralax) 34 g PO DAILY PRN constipation 12/05/22 [History Last Taken Unknown] potassium chloride 20 mEq tablet,extended release 20 meq PO DAILY 12/05/22 [History Last Taken 09/22/23] tamsulosin 0.4 mg capsule 0.4 mg PO DAILY 12/05/22 [History Last Taken 09/24/23] vitamins A,C,T-ugfg-yifuxm 4,296 mcg-226 mg-90 mg capsule (PreserVision AREDS) 1 cap PO BID 12/05/22 [History Last Taken 09/24/23] warfarin 2 mg tablet 2 mg PO TUTH 12/05/22 [History Last Taken 09/21/23] warfarin 3 mg tablet 3 mg PO SUMOWEFRSA 12/05/22 [History Last Taken 09/24/23] empagliflozin 10 mg tablet (Jardiance) 10 mg PO DAILY #30 tabs 07/13/23 [Rx Last Taken 09/23/23] dapagliflozin propanediol 5 mg tablet 5 mg PO DAILY 09/25/23 [History Last Taken 09/24/23] fluticasone propionate 50 mcg/actuation nasal spray,suspension 1 spray intranasal DAILY 09/25/23 [History Last Taken 09/23/23] Allergy/AdvReac Type Severity Reaction Status Date / Time No Known Allergies Allergy Verified 09/25/23 13:07 Family History (Updated 09/25/23 @ 17:[address] Krista Alston MD) Mother Alzheimer's dementia Father Vascular disease Surgical History History of appendectomy History of bilateral cataract extraction History of bladder stone History of carpal tunnel release History of prostate surgery History of radiofrequency ablation (RFA) procedure for cardiac arrhythmia (11/17/20) Social History (Updated 09/25/23 @ 17:[address] Krista Alston MD) household members: none housing: assisted living facility Smoking Status: Never smoker Smokeless tobacco user: chewing tobacco alcohol intake: never substance use type: does not use ROS ROS Narrative Admission Review of Systems: CONSTITUTIONAL: No weight loss, fever, chills, + weakness or fatigue. HEENT: Eyes: No visual loss, blurred vision, double vision or yellow sclerae. Ears, Nose, Throat: No hearing loss, sneezing, congestion, runny nose or sore throat. SKIN: No rash or itching, lesions, wounds. CARDIOVASCULAR: + Worsening lower extremity edema, orthopnea. No chest pain, chest pressure or chest discomfort, palpitations, syncopal events. RESPIRATORY: + Dyspnea worse with exertion. No marked cough or productive sputum, wheezing or hemoptysis. GASTROINTESTINAL: No anorexia, nausea, vomiting or diarrhea, abdominal pain, melena, BRBPR. GENITOURINARY: + Chronic unchanged urinary frequency. No dysuria, urgency or retention. NEUROLOGICAL: No headache, dizziness, syncope, paralysis, ataxia, numbness or tingling in the extremities, focal weakness, change in bowel or bladder control, seizure. MUSCULOSKELETAL: + muscle, back pain, joint pain or stiffness. HEMATOLOGIC: No anemia. + Easy bleeding/bruising. LYMPHATICS: No enlarged nodes. No history of splenectomy. PSYCHIATRIC: + History of anxiety and depression. ENDOCRINOLOGIC: No reports of sweating, cold or heat intolerance. No polyuria or polydipsia. ALLERGIES: + History of allergic rhinitis. Vital Signs Vital Signs Vital Signs: 09/25/23 12:48 09/25/23 12:57 09/25/23 12:57 Temperature 96.9 F L 96.9 F L 96.9 F L Temperature Source Oral Oral Oral Pulse Rate 77 77 77 Respiratory Rate 20 H 20 H 20 H Respiratory Effort Respiratory Pattern Blood Pressure 102/84 H 102/84 H 102/84 H Blood Pressure Mean 90 90 90 Pulse Ox 96 96 96 Oxygen Delivery Method Room Air Room Air Room Air 09/25/23 12:59 09/25/23 13:06 09/25/23 14:15 Temperature Temperature Source Pulse Rate 75 Respiratory Rate 20 H Respiratory Effort Short of Breath Labored Respiratory Pattern Tachypnea Blood Pressure 102/81 H Blood Pressure Mean 88 Pulse Ox 94 96 Oxygen Delivery Method Room Air Room Air 09/25/23 14:16 09/25/23 14:41 Temperature 97.8 F Temperature Source Temporal Pulse Rate 76 74 Respiratory Rate 20 H 18 Respiratory Effort Respiratory Pattern Blood Pressure 102/81 H 105/85 H Blood Pressure Mean 88 91 Pulse Ox 96 96 Oxygen Delivery Method Room Air Room Air Weight Weight: 208 lb Body Mass Index (BMI) 29.0 Physical Exam Narrative Physical Examination: General: Awake, alert, oriented to self, place, recent events, remains cooperative, laying in the ED bed, mildly increased respiratory rate, does appear dyspneic especially when he exerts himself in the bed. Skin: Normal color, normal turgor, no icterus, no cyanosis except very staged abrasions, bilateral lower extremity venous stasis skin changes, abrasions. HEENT: AT/NC, EOMI, PERRLA, mildly dry MM, no carotid bruits, + JVD noted. Lungs: Diminished, greater bases, mildly increased respiratory rate but no distress but does appear mildly dyspneic especially when he is exerting himself in the bed, mild rales at the bases, no rhonchi or wheezing. Heart: Regular rate and rhythm; no gallop, rub audible. Abdomen: Soft, obese, NTTP, ND, distant normal BS, no appreciated HSM. Extremities: No cyanosis, no clubbing, significant bilateral lower extremity pedal to knee 2-3+ pitting edema, venous stasis skin changes. Neurological: Patient awake, alert, oriented as noted, cognitive function intact; pupils equally reactive to light and accommodation, cranial nerves grossly normal, moving all 4 extremities, no focal deficits, strength severely globally decreased secondary to acute presentation complaints. Psychiatric: Affect appears flat, fatigued, no acute evidence of depressive or anxiety feelings. Results Lab / Micro Data 09/25/23 12:55 09/25/23 12:55 Labs: Laboratory Results - last 24 hr 09/25/23 12:55: WBC 6.5, RBC 5.24, Hgb 15.0, Hct 48.5, MCV 92.6, MCH 28.6, MCHC 30.9 L, RDW Std Deviation 53.6 H, RDW Coeff of Chacho 16.0 H, Plt Count 276, MPV 10.1, Immature Gran % (Auto) 0.300, Neut % (Auto) 73.2 H, Lymph % (Auto) 11.7 L, [place] % (Auto) 7.4, Eos % (Auto) 6.5 H, Baso % (Auto) 0.9, Absolute Neuts (auto) 4.8, Absolute Lymphs (auto) 0.76 L, Nucleated RBC % 0, PT 57.1 H, INR 6.6 H*, Sodium 136, Potassium 4.8, Chloride 105, Carbon Dioxide 24.0, Anion Gap 7, BUN 49 H, Creatinine 2.57 H, Est GFR (MDRD) Af Amer 31 L, Est GFR (MDRD) Non-Af 25 L, BUN/Creatinine Ratio 19.1, Glucose 127 H, Calcium 9.4, Troponin I High Sens 35, B-Natriuretic Peptide 1567.4 H Imaging Radiology Impression Chest X-Ray 09/25/23 13:10 IMPRESSION: Hyperinflation. Blunting of the right costophrenic angle with mild increased markings at the right lung base suggestive of either linear atelectasis and/or scarring. Electronically Signed: Brandon Granda MD at 13:55 EDT , Assessment & Plan Assessment/Plan (1) CHF exacerbation: PLAN: Plan The patient is an 88 y/o M w/ PMHx: Chew Tobacco use, Allergic rhinitis, CKD stage IV, HTN, HLD, Hx VTE (DVT, PE), Chronic HFrEF, BPH, PAF s/p RFA who presents to the [facility] ED on 09/25/23 with history of increasing lower extremity swelling, orthopnea, increasing weight gain and dyspnea with no fever cough however worsening prompting eventual ED evaluation. #1. Acute Decompensated HFrEF: Patient administered IV lasix in the ED, will admit to PCU, maintain on cardiac telemetry o, btain cardiac enzyme series, obtain serial EKGs, continue IV lasix diuresis, monitor I/Os, maintain on intake restriction, continue medical therapy, will obtain TSH and magnesium level. Most recent echocardiogram noted 01/26/2021 with LV systolic function severely reduced with LVEF 25 to 30%, LV diastolic function indeterminate, mild biatrial enlargement, moderate calcific aortic valve stenosis thus repeat requested, will place neck amarjit wraps with lower extremity elevation. #2. Hypercoagulable status on Coumadin therapy: Admission INR elevated 6.6, no evidence of bleeding on chronic Coumadin therapy, will temporally holding continue to trend INR with resumption once clinically appropriate. #3. Chronic Kidney Disease Stage IV: Admission BUN/Cr 49/2.57, GFR 25 similar to previous, baseline renal function 2.1-2.2 with most recent 04/15/2023 creatinine 2.28 at that time, repeat BMP in AM. #4. Hypertension: Continue home regimen including metoprolol, restart metolazone, IV Lasix, PRN hydralazine. #5. Hyperlipidemia: Not currently on statin therapy per current list, FLP in AM. #6. Obesity: Weight loss and lifestyle changes encouraged. #7. BPH: We will continue patient home dutasteride as well as Flomax regimen. #8. PAF: Status post previous RFA, we will continue patient home metoprolol, temporally holding Coumadin given INR upon presentation 6.6, continue to trend INR and resume once appropriate. #9. Chronic allergic rhinitis: We will continue patient home fluticasone regimen. #10. History of VTE: Patient with history of DVT, PE, given presentation INR 6.6 with no evidence of active bleeding we will temporally hold Coumadin, continue to trend INR with resumption once appropriate. #11. Chew tobacco use: Encouraged to tobacco cessation, nicotine replacement if necessary. #12. DVT prophylaxis: As noted patient with hypercoagulable status upon presentation with INR elevated 6.6, no evidence of bleeding, will hold Coumadin therapy and trend INR with restart once clinically appropriate. #13. CODE status: Patient DELIO is his daughter Merari and living will is currently in place. Discussed CODE status at length including difference between FULL code, DNR-CCA and DNR-CC status. Following discussions about the differences in these status, requested DNR-CC. This is also noted as DNR on his facility [place] paperwork and following discussions he notes DNR-CC but amenable to treatment of his acute presentation with diuretics, labs but no aggressive measures or interventions. Advanced Care Planning Face to Face Time: 16 minutes. Charges/Coding Visit Charges Inpatient E&M: 92468 Init Hosp L3 Procedures Hospitalists Procedures: 34114 Advncd Care Plan 30 Min
--- NOTE | 2023-09-25 16:03 | ECHOD_ITS ---
Reason For Study: CHF Procedure This was a 2D Doppler, Color Flow transthoracic echocardiogram. Exam performed portable in patient room. Left Ventricle Normal LV size. Severe concentric left ventricular hypertrophy. The left ventricular ejection fraction is 25 %. Severe segmental systolic dysfunction (see wall motion). There are regional wall motion abnormalities as specified. Right Ventricle Normal RV size. Moderate hypertrophy of the right ventricle. Mild global right ventricular systolic dysfunction. Atria The left atrium is mildly enlarged. Normal right atrium. Mitral Valve Normal mitral valve. Mild (1+) eccentric mitral valve insufficiency. Tricuspid Valve Normal tricuspid valve. Moderately severe (3+) tricuspid valve insufficiency. Pulmonary artery systolic pressure is over 100 mmhg mmHg. Severe pulmonary hypertension. Aortic Valve Trisinus/trileaflet aortic valve. Moderate focal aortic valve calcification. Peak aortic valve gradient 58 mmHg. Mean aortic valve gradient 34 mmHg. Moderate to severe aortic stenosis. Mild (1+) eccentric aortic valve insufficiency. Pulmonic Valve Normal pulmonic valve. Great Vessels Mild to moderately dilated aortic root. The pulmonary artery is normal size. Inferior vena cava collapse with sniff. Pericardium/Pleural No pericardial effusion. MMode/2D Measurements & Calculations LVIDd: 4.8 cm IVSd: 2.0 cm LVOT diam: 2.2 cm LVIDs: 4.1 cm LVPWd: 1.6 cm LVOT area: 3.7 cm2 FS: 14.6 % Ao root diam: 4.1 cm LAV(MOD-bp): 75.6 ml LVAd ap4: 32.3 cm2 LA dimension: 4.4 cm LAV(MOD-bp) Indexed: 35.3 ml/m2 LVLd ap4: 8.3 cm LAV(MOD-sp2): 65.9 ml EDV(MOD-sp4): 104.6 ml LAV(MOD-sp4): 74.6 ml EDV(sp4-el): 106.3 ml LVAs ap4: 24.9 cm2 LVLs ap4: 7.4 cm ESV(MOD-sp4): 71.6 ml ESV(sp4-el): 70.9 ml EF(MOD-sp4): 31.5 % EF(sp4-el): 33.3 % SV(MOD-sp4): 33.0 ml SV(sp4-el): 35.4 ml LA A4 area: 23.9 cm2 RA A4 area: 22.8 cm2 TAPSE: 1.7 cm Time Measurements MV dec time: 0.17 sec Doppler Measurements & Calculations MV E max jimmy: 80.9 cm/sec Lat Peak E' Jimmy: 3.7 cm/sec Med Peak E' Jimmy: 4.5 cm/sec MV A max jimmy: 45.4 cm/sec E/E' lat: 21.9 E/E' med: 18.0 MV E/A: 1.8 MV V2 max: 88.4 cm/sec MV P1/2t max jimmy: 88.6 cm/sec Ao V2 max: 379.9 cm/sec MV max P.1 mmHg MV P1/2t: 66.7 msec Ao max P.8 mmHg MV V2 mean: 42.5 cm/sec Ao V2 mean: 270.5 cm/sec MV mean P.90 mmHg MV dec slope: 388.8 cm/sec2 Ao mean P.5 mmHg MV V2 VTI: 20.8 cm MVA(P1/2t): 3.3 cm2 Ao V2 VTI: 81.2 cm AV (velocity ratio): 0.21 MVA(VTI): 3.1 cm2 CYDNEY(I,D): 0.78 cm2 CYDNEY(V,D): 0.77 cm2 AI max jimmy: 285.5 cm/sec LV V1 max: 78.5 cm/sec SV(LVOT): 63.7 ml AI max P.8 mmHg LV V1 max P.5 mmHg LV V1 mean P.6 mmHg AI dec slope: 177.5 cm/sec2 LV V1 mean: 59.1 cm/sec AI P1/2t: 471.1 msec LV V1 VTI: 17.2 cm PA V2 max: 53.6 cm/sec TR max jimmy: 530.9 cm/sec TR max P.7 mmHg ECHO/Echo Complete Interpretation Summary Normal LV size. Severe concentric left ventricular hypertrophy. The left ventricular ejection fraction is 25 %. Severe segmental systolic dysfunction (see wall motion). Pulmonary artery systolic pressure is over 100 mmhg mmHg. Severe pulmonary hypertension. Moderate to severe aortic stenosis. Mean aortic valve gradient 34 mmHg. Ordering Physician: Krista Alston Performed By: Donald Park RCS
[2023-09-25 16:13] LABS: Magnesium 2.5 mg/dL (1.6-2.6)
[2023-09-25 17:12] LABS: Troponin-I HS 32 pg/mL (3.0-78.0)
[2023-09-25] MEDS: Menthol/Lanolin/Calamine/Znox 113 GM Tube 1 APPLIC TOPICAL ×2 (17:45→21:16)
[2023-09-25] MEDS: Furosemide 100 MG/10 ML Vial 60 MG IV (17:46)
[2023-09-25] MEDS: Tamsulosin HCl 0.4 MG Capsule PO (17:46)
[2023-09-25] MEDS: 0.9% Saline Lock 10 ML Syringe IV (17:48)
[2023-09-25 18:54] LABS: Troponin-I HS 35 pg/mL (3.0-78.0)
[2023-09-25] MEDS: Docusate Sodium 100 MG Capsule PO (21:16)
[2023-09-26] VITALS (9 sets, daily range): BP systolic 92–110; BP diastolic 75–82; PULSE 74–79; RESP 16–22; TEMP 35.8–36.8; O2SAT 93–98; BMI 29.6
[2023-09-26 07:53] LABS: Absolute Lymphocyte Count 0.85 X10^3/uL (0.83-4.51); Absolute Neutrophil Count 5.1 X10^3/uL (2.0-7.7); Basophil# 0.07 X10^3/uL; Eosinophils% 6.9 % (0-5); Hematocrit 44.5 % (40-54); Hemoglobin 14.1 g/dL (13.0-16.5); Lymphocyte # 0.85 X10^3/ul (0.83-4.51); Lymphocyte % 11.8 % (19-41); Mean Corp Hgb Conc 31.7 g/dL (32-36); Mean Corpuscular Hgb 28.7 pg (27.0-32.0); Mean Corpuscular Volume 90.6 fL (80-94); Mean Platelet Vol. 10.7 fl (6.2-12.0); Monocyte# 0.62 X10^3/uL; Monocyte% 8.6 % (0-10); NRBC Flagged by Analyzer 0 % (0-5); Neutrophil # 5.14 X10^3/uL (2.7-7.7); Neutrophil % 71.1 % (47-70); Platelet Count 273 K/mm3 (150-450); RBC Distribution Width CV 15.9 % (11.6-14.6); RBC Distribution Width SD 52.1 fl (35.1-43.9); Red Blood Count 4.91 M/mm3 (4.6-6.2); White Blood Count 7.2 K/mm3 (4.4-11.0)
[2023-09-26 08:24] LABS: ALB/GLOB Ratio 0.9 RATIO (0.9-2.4); AST(SGOT) 12 U/L (15-37); Alanine Aminotransfer ALT/SGPT 16 U/L (16-61); Albumin, Serum 3.3 g/dL (3.2-5.0); Alkaline Phosphatase 71 U/L (45-117); Anion Gap 9 (5-15); BUN 52 mg/dL (7-18); BUN/Creat Ratio 20.3 RATIO (10-20); Calcium,Total 8.7 mg/dL (8.5-10.1); Chloride 106 mmol/L (98-107); Cholesterol 147 mg/dL (200); Creatinine, Serum 2.56 mg/dL (0.70-1.30); EST Glomerular Filtration Rate 25 mL/min (>60); Est Glom Filt Rate - Afr Amer 31 mL/min (>60); Estimated Creatinine Clearance 24.53 ml/min; Globulin 3.6 g/dL (2.2-4.2); Glucose 94 mg/dL (74-106); High Density Lipoprotein 39 mg/dL; Protein, Total 6.9 g/dL (6.4-8.2); Sodium Level 138 mmol/L (136-145); Thyroid Stim Hormone (TSH) 1.51 uIU/mL (0.358-3.74); Triglycerides 98 mg/dL; Very Low Density Lipoprotein 20 mg/dL (5-40)
[2023-09-26 08:26] LABS: Prothrombin Time (Protime)PT. 48.8 SECONDS (11.7-14.9)
[2023-09-26 08:33] LABS: International Normalized Ratio 5.4
--- NOTE | 2023-09-26 08:42 | PCM.PN.HOSP ---
Reason for Visit Reason for Visit: Diagnoses Heart failure, unspecified (09/25/23) Subjective Subjective Patient is an 88-year-old gentleman with multiple comorbidities admitted with progressive bilateral lower extremity swelling, weight gain and dyspnea with exertion. An assessment of congestive heart failure made admitted to a monitored bed for further management Objective Data Objective Data Vital Signs: Vital Signs Temp Pulse Resp BP Pulse Ox O2 Del Method O2 Flow Rate 96.8 F L 74 18 101/75 93 Nasal Cannula 2 09/26/23 03:21 09/26/23 03:21 09/26/23 03:21 09/26/23 03:21 09/26/23 07:44 09/26/23 07:44 09/26/23 07:44 Oxygen Flow Rate (L/min) 2 Oxygen Delivery Method Nasal Cannula Weight: 96.4 kg Body Mass Index (BMI) 29.6 Intake & Output: Intake and Output for Last 24 Hours 09/24/23 09/25/23 09/26/23 23:59 23:59 23:59 Intake Total 240 / 240 Output Total 775 / 775 500 / 500 Balance -775 / -775 -260 / -260 Lab / Micro Data 09/26/23 06:55 09/26/23 06:55 Labs: Laboratory Results - last 24 hr 09/25/23 12:55: WBC 6.5, RBC 5.24, Hgb 15.0, Hct 48.5, MCV 92.6, MCH 28.6, MCHC 30.9 L, RDW Std Deviation 53.6 H, RDW Coeff of Chacho 16.0 H, Plt Count 276, MPV 10.1, Immature Gran % (Auto) 0.300, Neut % (Auto) 73.2 H, Lymph % (Auto) 11.7 L, Harrison % (Auto) 7.4, Eos % (Auto) 6.5 H, Baso % (Auto) 0.9, Absolute Neuts (auto) 4.8, Absolute Lymphs (auto) 0.76 L, Nucleated RBC % 0, PT 57.1 H, INR 6.6 H*, Sodium 136, Potassium 4.8, Chloride 105, Carbon Dioxide 24.0, Anion Gap 7, BUN 49 H, Creatinine 2.57 H, Est GFR (MDRD) Af Amer 31 L, Est GFR (MDRD) Non-Af 25 L, BUN/Creatinine Ratio 19.1, Glucose 127 H, Calcium 9.4, Magnesium 2.5, Troponin I High Sens 35, B-Natriuretic Peptide 1567.4 H 09/25/23 16:35: Troponin I High Sens 32 09/25/23 18:25: Troponin I High Sens 35 09/26/23 06:55: WBC 7.2, RBC 4.91, Hgb 14.1, Hct 44.5, MCV 90.6, MCH 28.7, MCHC 31.7 L, RDW Std Deviation 52.1 H, RDW Coeff of Chacho 15.9 H, Plt Count 273, MPV 10.7, Immature Gran % (Auto) 0.600, Neut % (Auto) 71.1 H, Lymph % (Auto) 11.8 L, Harrison % (Auto) 8.6, Eos % (Auto) 6.9 H, Baso % (Auto) 1.0, Absolute Neuts (auto) 5.1, Absolute Lymphs (auto) 0.85, Nucleated RBC % 0, PT 48.8 H, INR 5.4 H*, Sodium 138, Potassium 4.0, Chloride 106, Carbon Dioxide 23.0, Anion Gap 9, BUN 52 H, Creatinine 2.56 H, Estim Creat Clear Calc 24.53, Est GFR (MDRD) Af Amer 31 L, Est GFR (MDRD) Non-Af 25 L, BUN/Creatinine Ratio 20.3 H, Glucose 94, Calcium 8.7, Total Bilirubin 1.30 H, AST 12 L, ALT 16, Alkaline Phosphatase 71, Total Protein 6.9, Albumin 3.3, Globulin 3.6, Albumin/Globulin Ratio 0.9, Triglycerides 98, Cholesterol 147, LDL Cholesterol 88, VLDL Cholesterol 20, HDL Cholesterol 39 L, TSH 1.51 Radiography Diagnostic Testing: Radiology Impression Chest X-Ray 09/25/23 13:10 IMPRESSION: Hyperinflation. Blunting of the right costophrenic angle with mild increased markings at the right lung base suggestive of either linear atelectasis and/or scarring. Electronically Signed: Brandon Granda MD at 13:55 EDT , Physical Exam Narrative GENERAL: cooperative HEENT: Atraumatic; normocephalic EYES; Anicteric, Normal Conjunctiva NECK; supple, normal thyroid, RESPIRATORY: Diminished to auscultation CARDIOVASCULAR: Regular S1 S2, GI: soft, normoactive bowel sounds, : No Renal angle tenderness; EXTREMITIES: Bipedal edema, no clubbing, MUSCULOSKELETAL: no muscle wasting NEURO: Awake; no lateralizing signs. SKIN: No Rash PSYCH; Flat affect Assessment & Plan Assessment/Plan (1) CHF exacerbation: PLAN: Plan Patient is an 88-year-old gentleman with multiple comorbidities admitted with progressive bilateral lower extremity swelling, weight gain and dyspnea with exertion. An assessment of congestive heart failure made admitted to a monitored bed for further management 1. Acute on chronic congestive heart failure with reduced ejection fraction ? Echo from 01/26/2021 demonstrated EF of 25 to 30%. Patient has been admitted to a monitored bed currently being managed with fluid restriction, low-sodium diet, diuretic therapy as well as oxygen. Repeat echo ordered for EF assessment 2.Valvular heart disease ? Patient is known to have a moderate calcific aortic valve stenosis repeat echo ordered 3. Chronic kidney disease stage IV Patient creatinine at baseline 4. BPH with lower urinary obstructive symptoms - Patient treated with tamsulosin 5. Hypertension - Blood pressure controlled, home medications continued with dose adjustment as needed 6. History of previous VTE (DVT and PE ? Patient is on systemic anticoagulation with Coumadin INR was elevated on admission, Coumadin held, daily monitoring with INR ordered 7. Paroxysmal atrial fibrillation ? Status post RFA 8. DVT prophylaxis ? Patient is on Coumadin with a supratherapeutic INR Time spent in the patient's overall evaluation,decision-making process, review of diagnostic data, adjustment of management, discussion with other providers, nursing nursing and ancillary staff involved in patient's care documentation, 51 Minutes Charges/Coding Visit Charges Inpatient E&M: 47022 [facility] L3
[2023-09-26] MEDS: Albuterol 2.5 MG/3 ML VIAL.NEB. INHALATION (09:19)
--- NOTE | 2023-09-26 09:33 | CASEMGMT ---
[facility]ed updates to [facility]. Shawanda Boston CATERING ASSISTANTElias DEL REAL
[2023-09-26] MEDS: Aspirin 81 MG TAB.CHEW PO (09:46)
[2023-09-26] MEDS: Potassium Chloride Oral Tablet 20 MEQ PO (09:46)
[2023-09-26] MEDS: Docusate Sodium 100 MG Capsule PO ×2 (09:47→21:38)
[2023-09-26] MEDS: Fluticasone 0.05% 1 SPRAY NASAL.SRY NASAL (09:47)
[2023-09-26] MEDS: Metoprolol(XL)Succ 50 MG Tablet PO (09:47)
[2023-09-26] MEDS: Tolterodine Tartrate 2 MG CAP.SA PO (09:47)
[2023-09-26] MEDS: Finasteride 5 MG Tablet PO (09:47)
[2023-09-26] MEDS: Metolazone 2.5 MG Tablet PO (09:47)
[2023-09-26] MEDS: Ensure Plus High Protein 120 ML LIQUID PO (11:01)
[2023-09-26] MEDS: 0.9% Saline Lock 10 ML Syringe IV ×2 (11:01→17:18)
[2023-09-26] MEDS: Furosemide 100 MG/10 ML Vial 60 MG IV ×2 (11:01→17:05)
[2023-09-26] MEDS: Menthol/Lanolin/Calamine/Znox 113 GM Tube 1 APPLIC TOPICAL ×3 (11:01→21:37)
--- NOTE | 2023-09-26 11:53 | CASEMGMT ---
Nurse notified FERNANDO that patient and the visitors in patient's room are stating [facility] is not feeding patient. Per patient and visitor patient uses an electric wheelchair and it is currently broken. Therefore patient is not able to go down to the eating area on his own. Allegedly staff at [facility] told him that if he cannot get himself down to the eating area then it is up to him to get food. FERNANDO called [facility] and spoke with Nataly. Nataly said one of the aides takes patient to the eating area every day for meals. Shawanda Boston BODY AND FENDER WORKER NASIMA
--- NOTE | 2023-09-26 12:09 | NURSING ---
Patient POA (Dtr) Merari Rainey called in with frustrations that no one has contacted her since patient was admitted in the hopsital. [facility] and [facility]. To this nurses knowledge attempts to contact POA numerous times with no success since POTom has not answered phone. Reassured that we would contact further for future updates. Overall POTom happy with future plans, advised POA to bring in documentation of living will and HCPOA, She states that she will tomorrow. Merari Rainey [phone], checked contact list, this is correct.
--- NOTE | 2023-09-26 12:12 | NURSING ---
Patient noted to be anxious with tachypneic respirations at times, visitor in room seems to be the exacerbation of this anxiety, contacted doctor for something to help with anxiety. PER POA, ok to place sign on door to limit visitors to assist w/ patient comfort and healing. aware.
[2023-09-26] MEDS: Tamsulosin HCl 0.4 MG Capsule PO (17:05)
[2023-09-27] MEDS: MELATONIN 3 MG TABLET PO (01:09)
[2023-09-27] MEDS: Acetaminophen 325 MG Tablet 650 MG PO (01:09)
[2023-09-27 03:15] VITALS: BP 92/77; PULSE 76; RESP 18; TEMP 36.5; O2SAT 95
[2023-09-27 03:26] VITALS: BMI 29.5
[2023-09-27 06:53] LABS: Absolute Lymphocyte Count 0.75 X10^3/uL (0.83-4.51); Absolute Neutrophil Count 6.2 X10^3/uL (2.0-7.7); Basophil# 0.07 X10^3/uL; Basophil% 0.8 % (0-1); Eosinophil# 0.33 X10^3/uL; Eosinophils% 3.9 % (0-5); Hematocrit 45.1 % (40-54); Hemoglobin 14.3 g/dL (13.0-16.5); Lymphocyte # 0.75 X10^3/ul (0.83-4.51); Lymphocyte % 8.9 % (19-41); Mean Corp Hgb Conc 31.7 g/dL (32-36); Mean Corpuscular Hgb 28.5 pg (27.0-32.0); Mean Platelet Vol. 10.5 fl (6.2-12.0); Monocyte# 0.99 X10^3/uL; Monocyte% 11.8 % (0-10); NRBC Flagged by Analyzer 0 % (0-5); Neutrophil # 6.22 X10^3/uL (2.7-7.7); Neutrophil % 74.2 % (47-70); Platelet Count 273 K/mm3 (150-450); RBC Distribution Width CV 16.1 % (11.6-14.6); RBC Distribution Width SD 52.4 fl (35.1-43.9); Red Blood Count 5.01 M/mm3 (4.6-6.2); White Blood Count 8.4 K/mm3 (4.4-11.0)
[2023-09-27 07:25] VITALS: O2SAT 95
[2023-09-27 07:28] LABS: Anion Gap 9 (5-15); BUN 56 mg/dL (7-18); BUN/Creat Ratio 20.4 RATIO (10-20); Chloride 102 mmol/L (98-107); Creatinine, Serum 2.75 mg/dL (0.70-1.30); EST Glomerular Filtration Rate 23 mL/min (>60); Est Glom Filt Rate - Afr Amer 28 mL/min (>60); Estimated Creatinine Clearance 22.81 ml/min; Glucose 105 mg/dL (74-106); Magnesium 2.2 mg/dL (1.6-2.6); Phosphorus 3.7 mg/dL (2.5-4.9); Potassium 3.5 mmol/L (3.5-5.1); Sodium Level 137 mmol/L (136-145)
[2023-09-27] MEDS: Aspirin 81 MG TAB.CHEW PO (08:41)
[2023-09-27] MEDS: Potassium Chloride Oral Tablet 20 MEQ PO (08:41)
--- NOTE | 2023-09-27 08:51 | PCM.PN.HOSP ---
Reason for Visit Reason for Visit: Diagnoses Heart failure, unspecified (09/25/23) Subjective Subjective Patient seen complains of feeling fatigued. Echo demonstrated EF of 25%. Patient blood pressure relatively low this a.m. adjusted diuretic dose. Objective Data Objective Data Vital Signs: Vital Signs Temp Pulse Resp BP Pulse Ox O2 Del Method O2 Flow Rate 97.7 F L 76 18 92/77 95 Room Air 2 09/27/23 03:15 09/27/23 03:15 09/27/23 03:15 09/27/23 03:15 09/27/23 03:15 09/27/23 03:09/26/23 07:44 Oxygen Flow Rate (L/min) 2 Oxygen Delivery Method Room Air Weight: 96.1 kg Body Mass Index (BMI) 29.5 Intake & Output: Intake and Output for Last 24 Hours 09/25/23 09/26/23 09/27/23 23:59 23:59 23:59 Intake Total 720 / 960 480 / 480 Output Total 775 / 775 500 / 875 725 / 725 Balance -775 / -775 220 / 85 -245 / -245 Lab / Micro Data 09/27/23 06:10 09/27/23 06:10 Labs: Laboratory Results - last 24 hr 09/27/23 06:10: WBC 8.4, RBC 5.01, Hgb 14.3, Hct 45.1, MCV 90.0, MCH 28.5, MCHC 31.7 L, RDW Std Deviation 52.4 H, RDW Coeff of Chacho 16.1 H, Plt Count 273, MPV 10.5, Immature Gran % (Auto) 0.400, Neut % (Auto) 74.2 H, Lymph % (Auto) 8.9 L, [place] [facility] % (Auto) 11.8 H, Eos % (Auto) 3.9, Baso % (Auto) 0.8, Absolute Neuts (auto) 6.2, Absolute Lymphs (auto) 0.75 L, Nucleated RBC % 0, Sodium 137, Potassium 3.5, Chloride 102, Carbon Dioxide 26.0, Anion Gap 9, BUN 56 H, Creatinine 2.75 H, Estim Creat Clear Calc 22.81, Est GFR (MDRD) Af Amer 28 L, Est GFR (MDRD) Non-Af 23 L, BUN/Creatinine Ratio 20.4 H, Glucose 105, Calcium 9.0, Phosphorus 3.7, Magnesium 2.2 Radiography Diagnostic Testing: Radiology Impression Echocardiogram 09/25/23 16:03 Interpretation Summary Normal LV size. Severe concentric left ventricular hypertrophy. The left ventricular ejection fraction is 25 %. Severe segmental systolic dysfunction (see wall motion). Pulmonary artery systolic pressure is over 100 mmhg mmHg. Severe pulmonary hypertension. Moderate to severe aortic stenosis. Mean aortic valve gradient 34 mmHg. Ordering Physician: Krsita Alston Performed By: Donald Park RCS Physical Exam Narrative GENERAL: cooperative HEENT: Atraumatic; normocephalic EYES; Anicteric, Normal Conjunctiva NECK; supple, normal thyroid, RESPIRATORY: Diminished to auscultation CARDIOVASCULAR: Regular S1 S2, GI: soft, normoactive bowel sounds, : No Renal angle tenderness; EXTREMITIES: Bipedal edema, no clubbing, MUSCULOSKELETAL: no muscle wasting NEURO: Awake; no lateralizing signs. SKIN: No Rash PSYCH; Flat affect Assessment & Plan Assessment/Plan (1) CHF exacerbation: PLAN: Plan Patient is an 88-year-old gentleman with multiple comorbidities admitted with progressive bilateral lower extremity swelling, weight gain and dyspnea with exertion. An assessment of congestive heart failure made admitted to a monitored bed for further management 1. Acute on chronic congestive heart failure with reduced ejection fraction ? Echo from 01/26/2021 demonstrated EF of 25 to 30%. Patient has been admitted to a monitored bed currently being managed with fluid restriction, low-sodium diet, diuretic therapy as well as oxygen. Repeat echo ordered for EF assessment -09/27/2023; patient seen still complains of feeling fatigue. 2D echo obtained the day prior did show Severe concentric left ventricular hypertrophy. The left ventricular ejection fraction is 25 %. Severe segmental systolic dysfunction (see wall motion). Pulmonary artery systolic pressure is over 100 mmhg mmHg. Severe pulmonary hypertension. Moderate to severe aortic stenosis. Mean aortic valve gradient 34 mmHg. -Adjusted diuretic dose in view of his relatively low blood pressure 2.Valvular heart disease ? Patient is known to have a moderate calcific aortic valve stenosis repeat echo ordered 3. Chronic kidney disease stage IV Patient creatinine at baseline 4. BPH with lower urinary obstructive symptoms - Patient treated with tamsulosin 5. Hypertension - Blood pressure controlled, home medications continued with dose adjustment as needed ? 09/27/2023; patient blood pressure running 6. History of previous VTE (DVT and PE ? Patient is on systemic anticoagulation with Coumadin INR was elevated on admission, Coumadin held, daily monitoring with INR ordered 7. Paroxysmal atrial fibrillation ? Status post RFA 8. DVT prophylaxis ? Patient is on Coumadin with a supratherapeutic INR 9. Physical deconditioning - Requested for PT OT eval and school social worker to assist with discharge planning Time spent in the patient's overall evaluation,decision-making process, review of diagnostic data, adjustment of management, discussion with other providers, nursing nursing and ancillary staff involved in patient's care documentation, 50 Minutes Charges/Coding Visit Charges Inpatient E&M: 13757 Subs Hosp L3
[2023-09-27] MEDS: Fluticasone 0.05% 1 SPRAY NASAL.SRY NASAL (08:55)
[2023-09-27] MEDS: Docusate Sodium 100 MG Capsule PO ×2 (09:09→21:43)
[2023-09-27] MEDS: Menthol/Lanolin/Calamine/Znox 113 GM Tube 1 APPLIC TOPICAL ×4 (09:09→21:41)
[2023-09-27] MEDS: Finasteride 5 MG Tablet PO (09:10)
[2023-09-27] MEDS: Tolterodine Tartrate 2 MG CAP.SA PO (09:10)
[2023-09-27] MEDS: Furosemide 40 MG Tablet PO ×2 (09:14→18:42)
[2023-09-27 09:15] VITALS: PULSE 80
[2023-09-27] MEDS: Metoprolol(XL)Succ 25 MG Tablet PO (09:15)
[2023-09-27 09:30] VITALS: BP 100/74; PULSE 80; RESP 16; TEMP 36.3; O2SAT 94
[2023-09-27 09:36] LABS: International Normalized Ratio 3.3
--- NOTE | 2023-09-27 10:59 | CASEMGMT ---
FERNANDO sent PT/OT to [facility] and asked that they notify FERNANDO if they are okay with taking patient back or if they feel he needs a residential facility. Shawanda Boston DIRECTOR CORPORATE COMMUNICATIONSElias DEL REAL
--- NOTE | 2023-09-27 11:19 | CASEMGMT ---
FENRANDO received a call from Nataly at [facility]. They are okay with patient returning. FERNANDO let Nataly know that physician was thinking patient will be discharged tomorrow. Shawanda DEL REAL
--- NOTE | 2023-09-27 14:23 | CASEMGMT ---
SW spoke with patient. Introduced self and role at [facility]. Patient confirmed his plan is to return to [facility]. Patient stated he may need transpotation. Shawanda DEL REAL
--- NOTE | 2023-09-27 14:50 | CASEMGMT ---
FERNANDO called patient's daughter Merari. She confirmed the plan is for patient to return to [facility]. Merari asked FERNANDO if FERNANDO will call her when it is time to seed cone picker patient. FERNANDO let Merari know SW will definitely let her know. Merari thanked FERNANDO for calling her. Plan: d/c back to [facility]. Patient's daughter will transport patient back. Shawanda DEL REAL
[2023-09-27 15:30] VITALS: BP 94/72; PULSE 80; RESP 16; TEMP 36.7; O2SAT 99
[2023-09-27] MEDS: Tamsulosin HCl 0.4 MG Capsule PO (16:30)
[2023-09-27 21:39] VITALS: BP 95/67; PULSE 83; RESP 18; TEMP 36.7; O2SAT 98
[2023-09-28 02:02] VITALS: BMI 28.4
[2023-09-28] MEDS: Acetaminophen 325 MG Tablet 650 MG PO ×2 (02:10→08:08)
[2023-09-28 03:26] VITALS: BP 100/71; PULSE 80; RESP 18; TEMP 36.6; O2SAT 96
[2023-09-28 06:58] LABS: Absolute Lymphocyte Count 0.65 X10^3/uL (0.83-4.51); Absolute Neutrophil Count 6.3 X10^3/uL (2.0-7.7); Basophil# 0.05 X10^3/uL; Basophil% 0.6 % (0-1); Eosinophils% 1.2 % (0-5); Hematocrit 44.9 % (40-54); Hemoglobin 14.7 g/dL (13.0-16.5); Lymphocyte # 0.65 X10^3/ul (0.83-4.51); Mean Corp Hgb Conc 32.7 g/dL (32-36); Mean Corpuscular Hgb 29.1 pg (27.0-32.0); Mean Corpuscular Volume 88.9 fL (80-94); Mean Platelet Vol. 10.6 fl (6.2-12.0); Monocyte# 0.95 X10^3/uL; Monocyte% 11.8 % (0-10); NRBC Flagged by Analyzer 0.5 % (0-5); Platelet Count 265 K/mm3 (150-450); RBC Distribution Width SD 51.4 fl (35.1-43.9); Red Blood Count 5.05 M/mm3 (4.6-6.2); White Blood Count 8.1 K/mm3 (4.4-11.0)
[2023-09-28 07:27] LABS: Anion Gap 7 (5-15); BUN 56 mg/dL (7-18); BUN/Creat Ratio 21.3 RATIO (10-20); Chloride 99 mmol/L (98-107); Creatinine, Serum 2.63 mg/dL (0.70-1.30); EST Glomerular Filtration Rate 25 mL/min (>60); Est Glom Filt Rate - Afr Amer 30 mL/min (>60); Estimated Creatinine Clearance 23.45 ml/min; Glucose 100 mg/dL (74-106); Potassium 3.3 mmol/L (3.5-5.1); Sodium Level 134 mmol/L (136-145)
[2023-09-28 08:02] VITALS: BP 96/64; PULSE 78; RESP 16; TEMP 36; O2SAT 95
[2023-09-28] MEDS: Potassium Chloride Oral Tablet 20 MEQ PO (08:08)
[2023-09-28] MEDS: Aspirin 81 MG TAB.CHEW PO (08:08)
[2023-09-28 09:35] VITALS: O2SAT 91
[2023-09-28 09:42] LABS: International Normalized Ratio 2.5; Prothrombin Time (Protime)PT. 26.7 SECONDS (11.7-14.9)
--- NOTE | 2023-09-28 10:02 | PCM.DC.SUM ---
Providers Date of Admission: 09/25/23 Date of Discharge: 09/28/23 Primary Care Physician: Luba Zavala, PEDRITO Reason For Visit: HF EXACERBATION Diagnosis Discharge Diagnosis (1) CHF exacerbation: Status: Chronic Code(s): I50.9 - Heart failure, unspecified Plan Patient is an 88-year-old gentleman with multiple comorbidities admitted with progressive bilateral lower extremity swelling, weight gain and dyspnea with exertion. An assessment of congestive heart failure made admitted to a monitored bed for further management 1. Acute on chronic congestive heart failure with reduced ejection fraction ? Echo from 01/26/2021 demonstrated EF of 25 to 30%. Patient has been admitted to a monitored bed currently being managed with fluid restriction, low-sodium diet, diuretic therapy as well as oxygen. Repeat echo ordered for EF assessment -09/27/2023; patient seen still complains of feeling fatigue. 2D echo obtained the day prior did show Severe concentric left ventricular hypertrophy. The left ventricular ejection fraction is 25 %. Severe segmental systolic dysfunction (see wall motion). Pulmonary artery systolic pressure is over 100 mmhg mmHg. Severe pulmonary hypertension. Moderate to severe aortic stenosis. Mean aortic valve gradient 34 mmHg. -Adjusted diuretic dose in view of his relatively low blood pressure 2.Valvular heart disease ? Patient is known to have a moderate calcific aortic valve stenosis repeat echo ordered 3. Chronic kidney disease stage IV Patient creatinine at baseline 4. BPH with lower urinary obstructive symptoms - Patient treated with tamsulosin 5. Hypertension - Blood pressure controlled, home medications continued with dose adjustment as needed ? 09/27/2023; patient blood pressure running 6. History of previous VTE (DVT and PE ? Patient is on systemic anticoagulation with Coumadin INR was elevated on admission, Coumadin held, daily monitoring with INR ordered 7. Paroxysmal atrial fibrillation ? Status post RFA 8. DVT prophylaxis ? Patient is on Coumadin with a supratherapeutic INR 9. Physical deconditioning - Requested for PT OT eval and social sciences research scientist to assist with discharge planning Time spent in the patient's overall evaluation,decision-making process, review of diagnostic data, adjustment of management, discussion with other providers, nursing nursing and ancillary staff involved in patient's care documentation, 35 Minutes Medications at Discharge Home Medications acetaminophen 325 mg tablet 650 mg PO Q4H PRN fever or pain 12/05/22 bisacodyl 10 mg rectal suppository 10 mg DE DAILY PRN constipation 12/05/22 bumetanide 1 mg tablet 1 mg PO DAILY 12/05/22 docusate sodium 100 mg capsule 100 mg PO BID 12/05/22 dutasteride 0.5 mg capsule 0.5 mg PO DAILY 12/05/22 magnesium hydroxide 400 mg/5 mL oral suspension (Milk of Magnesia) 15 ml PO Q3-4D PRN constipation 12/05/22 metolazone 2.5 mg tablet 2.5 mg PO UD 12/05/22 metoprolol succinate 50 mg tablet,extended release 24 hr 50 mg PO DAILY 12/05/22 oxybutynin chloride 5 mg tablet,extended release 24 hr 5 mg PO BID 12/05/22 polyethylene glycol 3350 17 gram/dose oral powder (Miralax) 34 g PO DAILY PRN constipation 12/05/22 potassium chloride 20 mEq tablet,extended release 20 meq PO DAILY 12/05/22 tamsulosin 0.4 mg capsule 0.4 mg PO DAILY 12/05/22 vitamins A,C,Z-fvkc-mleuwv 4,296 mcg-226 mg-90 mg capsule (PreserVision AREDS) 1 cap PO BID 12/05/22 warfarin 2 mg tablet 2 mg PO TUTH 12/05/22 warfarin 3 mg tablet 3 mg PO SUMOWEFRSA 12/05/22 empagliflozin 10 mg tablet (Jardiance) 10 mg PO DAILY #30 tabs 07/13/23 dapagliflozin propanediol 5 mg tablet 5 mg PO DAILY 09/25/23 fluticasone propionate 50 mcg/actuation nasal spray,suspension 1 spray intranasal DAILY 09/25/23 Physical Exam Narrative GENERAL: cooperative HEENT: Atraumatic; normocephalic EYES; Anicteric, Normal Conjunctiva NECK; supple, normal thyroid, RESPIRATORY: Diminished to auscultation CARDIOVASCULAR: Regular S1 S2, GI: soft, normoactive bowel sounds, : No Renal angle tenderness; EXTREMITIES: Bipedal edema, no clubbing, MUSCULOSKELETAL: no muscle wasting NEURO: Awake; no lateralizing signs. SKIN: No Rash PSYCH; Flat affect Weight / BMI Weight Weight: 92.6 kg Body Mass Index (BMI) 28.4 ABG / Lab / Microbiology Data 09/28/23 06:15 09/28/23 06:15 Laboratory: Laboratory Results - last 24 hr 09/28/23 06:15: WBC 8.1, RBC 5.05, Hgb 14.7, Hct 44.9, MCV 88.9, MCH 29.1, MCHC 32.7, RDW Std Deviation 51.4 H, RDW Coeff of Chacho 16.0 H, Plt Count 265, MPV 10.6, Immature Gran % (Auto) 0.400, Neut % (Auto) 78.0 H, Lymph % (Auto) 8.0 L, Maries % (Auto) 11.8 H, Eos % (Auto) 1.2, Baso % (Auto) 0.6, Absolute Neuts (auto) 6.3, Absolute Lymphs (auto) 0.65 L, Nucleated RBC % 0.5, PT 26.7 H, INR 2.5, Sodium 134 L, Potassium 3.3 L, Chloride 99, Carbon Dioxide 28.0, Anion Gap 7, BUN 56 H, Creatinine 2.63 H, Estim Creat Clear Calc 23.45, Est GFR (MDRD) Af Amer 30 L, Est GFR (MDRD) Non-Af 25 L, BUN/Creatinine Ratio 21.3 H, Glucose 100, Calcium 9.0 Meaningful Use Info Meaningful Use Meaningful Use Diagnoses (Choose all that apply): CHF CHF SUSANNAH/ARB ordered at discharge?: Yes Reason SUSANNAH/ARB not ordered?: Worsening renal disease Documented LVEF (%): 25 Ischemic Stroke Statin Dosing Therapy Reference: STATIN DOSE THERAPY REFERENCE: * Patients > 75 years receive moderate or high dose statin therapy. * Patients 75 years or YOUNGER should receive HIGH intensity statin dose unless contraindicated. You will be required to document reason for non-treatment if statin daily dose does not meet guidelines. HIGH DOSE STATIN THERAPY DAILY Atorvastatin > than or = to 40 mg Rosuvastatin > than or = to 20 mg Amlodipine + Atorvastatin > than or = to 2.5/40 mg Ezetimibe + Simvastatin 10/80 mg Simvastatin 80mg Discharge Plan Admission Admit Date/Time: 09/25/23 15:09 Attending Provider: Willard Mayers Primary Care Provider: Luba Zavala COOLER ROOM WORKER Consulting Providers: Krista Alston Discharge Orders/Prescriptions Prescriptions: Continued bumetanide 1 mg tablet 1 mg PO DAILY docusate sodium 100 mg capsule 100 mg PO BID dutasteride 0.5 mg capsule 0.5 mg PO DAILY metoprolol succinate 50 mg tablet extended release 24 hr 50 mg PO DAILY oxybutynin chloride 5 mg tablet extended release 24hr 5 mg PO BID Rx Instructions: ER PER MAR potassium chloride 20 mEq tablet extended release 20 meq PO DAILY PreserVision AREDS 4,296 mcg-226 mg-90 mg capsule 1 cap PO BID metolazone 2.5 mg tablet 2.5 mg PO UD Hold Instructions: PER AUG Rx Instructions: QOD tamsulosin 0.4 mg capsule 0.4 mg PO DAILY warfarin 3 mg tablet 3 mg PO SUMOWEFRSA warfarin 2 mg tablet 2 mg PO TUTH polyethylene glycol 3350 [Miralax] 17 gram/dose powder 34 g PO DAILY PRN (Reason: constipation) magnesium hydroxide [Milk of Magnesia] 400 mg/5 mL suspension 15 ml PO Q3-4D PRN (Reason: constipation) bisacodyl 10 mg suppository 10 mg DE DAILY PRN (Reason: constipation) acetaminophen 325 mg tablet 650 mg PO Q4H PRN (Reason: fever or pain) dapagliflozin propanediol 5 mg tablet 5 mg PO DAILY fluticasone propionate 50 mcg/actuation spray,suspension 1 spray INTRANASAL DAILY Jardiance 10 mg tablet 10 mg PO DAILY Qty: 30 11RF Referrals / Follow Up: Yovana Wilson DO [Med Staff - Active Staff] - Luba Zavala COOLER ROOM WORKER, COOLER ROOM WORKER-C [Primary Care Provider] - Disposition Disposition (needs filled in before D/C Order can be placed): Assisted Living Charges/Coding Visit Charges Inpatient E&M: 64305 Disch Hosp >30min
--- NOTE | 2023-09-28 10:20 | CASEMGMT ---
Patient is ready for discharge back to [facility]. SW faxed d/c instructions to [facility]. SW called [facility] and notified them of patient's discharge. SW called patient's daughter Merari and let her know patient is ready for discharge. Merari will be in to picker packer patient. SW notified RN and patient. Plan: d/c back to [facility]. Patient's daughter transported via private vehicle. Shawanda DEL REAL
[2023-09-28 10:54] VITALS: PULSE 78
[2023-09-28] MEDS: Finasteride 5 MG Tablet PO (10:54)
[2023-09-28] MEDS: Metolazone 2.5 MG Tablet PO (10:54)
[2023-09-28] MEDS: Metoprolol(XL)Succ 25 MG Tablet PO (10:54)
[2023-09-28] MEDS: Furosemide 40 MG Tablet PO (10:54)
[2023-09-28] MEDS: Tolterodine Tartrate 2 MG CAP.SA PO (10:54)
[2023-09-28] MEDS: Fluticasone 0.05% 1 SPRAY NASAL.SRY NASAL (10:54)
[2023-09-28] MEDS: Docusate Sodium 100 MG Capsule PO (10:54)
[2023-09-28] MEDS: Menthol/Lanolin/Calamine/Znox 113 GM Tube 1 APPLIC TOPICAL (10:55)
--- NOTE | 2023-09-28 11:08 | PHA.DC.MR.R ---
Pharmacy [facility] Reconciliation Pharmacy Service has performed discharge medication reconciliation for this patient upon transfer to [facility]. The patient's discharge medication list was reviewed for discrepancies and discrepancies were resolved. Medications at Discharge Home Medications acetaminophen 325 mg tablet 650 mg PO Q4H PRN fever or pain 12/05/22 bisacodyl 10 mg rectal suppository 10 mg LA DAILY PRN constipation 12/05/22 bumetanide 1 mg tablet 1 mg PO DAILY 12/05/22 docusate sodium 100 mg capsule 100 mg PO BID 12/05/22 dutasteride 0.5 mg capsule 0.5 mg PO DAILY 12/05/22 magnesium hydroxide 400 mg/5 mL oral suspension (Milk of Magnesia) 15 ml PO Q3-4D PRN constipation 12/05/22 metolazone 2.5 mg tablet 2.5 mg PO UD 12/05/22 metoprolol succinate 50 mg tablet,extended release 24 hr 50 mg PO DAILY 12/05/22 oxybutynin chloride 5 mg tablet,extended release 24 hr 5 mg PO BID 12/05/22 polyethylene glycol 3350 17 gram/dose oral powder (Miralax) 34 g PO DAILY PRN constipation 12/05/22 potassium chloride 20 mEq tablet,extended release 20 meq PO DAILY 12/05/22 tamsulosin 0.4 mg capsule 0.4 mg PO DAILY 12/05/22 vitamins A,C,R-bcoh-ngzqze 4,296 mcg-226 mg-90 mg capsule (PreserVision AREDS) 1 cap PO BID 12/05/22 warfarin 2 mg tablet 2 mg PO TUTH 12/05/22 warfarin 3 mg tablet 3 mg PO SUMOWEFRSA 12/05/22 empagliflozin 10 mg tablet (Jardiance) 10 mg PO DAILY #30 tabs 07/13/23 dapagliflozin propanediol 5 mg tablet 5 mg PO DAILY 09/25/23 fluticasone propionate 50 mcg/actuation nasal spray,suspension 1 spray intranasal DAILY 09/25/23
== END 2023-09-28 11:31 | disposition home or self-care (01) | DRG 291 ==
LOC: ED 15:26 → PCU 15:43
PROVIDERS: Admitting Provider Family Medicine; Emergency Provider Emergency Medicine; PCP Nurse Practitioner Adult Health; Visit Provider Internal Medicine
DX: I13.0 Hypertensive heart and chronic kidney disease with heart failure and stage 1 through stage 4 chronic kidney disease, or unspecified chronic kidney disease (principal); I50.23 Acute on chronic systolic (congestive) heart failure; D68.59 Other primary thrombophilia; N18.4 Chronic kidney disease, stage 4 (severe); N13.8 Other obstructive and reflux uropathy; I48.0 Paroxysmal atrial fibrillation; I35.0 Nonrheumatic aortic (valve) stenosis; E78.5 Hyperlipidemia, unspecified; J30.9 Allergic rhinitis, unspecified; F17.220 Nicotine dependence, chewing tobacco, uncomplicated; E66.9 Obesity, unspecified; Z79.01 Long term (current) use of anticoagulants; N40.1 Benign prostatic hyperplasia with lower urinary tract symptoms; Z86.718 Personal history of other venous thrombosis and embolism; Z86.711 Personal history of pulmonary embolism; Z90.49 Acquired absence of other specified parts of digestive tract; Z98.41 Cataract extraction status, right eye; Z98.42 Cataract extraction status, left eye; Z79.899 Other long term (current) drug therapy; Z68.29 Body mass index [BMI] 29.0-29.9, adult; R53.81 Other malaise
CPT/HCPCS: 36415; 71045; 80048; 80053; 80061; 83735; 83880; 84100; 84443; 84484; 85025; 85610; 93005; 93306; 94640; 94668; 97110; 97116; 97162; 97166; 97530; 97535; 97802; 99285; Q9957; A4216; J1940

== ENCOUNTER 2023-10-02 10:19 | Observation (INO) | payer MEDICARE, MEDICAID, SELFPAY ==
[2023-10-02 10:21] VITALS: BP 88/70; PULSE 74; RESP 18; TEMP 36.4; O2SAT 97; BMI 28.8
--- NOTE | 2023-10-02 10:36 | EKG12_ITS ---
Test Reason : CONFUSED Blood Pressure : / mmHG Vent. Rate : 072 BPM Atrial Rate : 072 BPM P-R Int : 264 ms QRS Dur : 162 ms QT Int : 470 ms P-R-T Axes : 059 265 023 degrees QTc Int : 514 ms Sinus rhythm with 1st degree A-V block Right bundle branch block Abnormal ECG Confirmed by COLLEEN GR, RAY ([id number]), art editor SHELBY ROUSSEAU ([id number]) on 10/09/2023 1:28:15 PM Referred By: Confirmed By:LUIS CARLOS MACIAS MD
--- NOTE | 2023-10-02 10:37 | EX.ED.DYSGE1 ---
HPI History of Present Illness Chief Complaint: General Illness Detail of Chief Complaint: Patient not appropriate for assisted living Informant: patient, EMS and other Onset/Context/Timing Onset: - (Unable to determine) Context: - (Unable to determine) Timing: Continuous Quality: Patient is not oriented at times. Location: [facility] assisted living facility Current Severity: Mild Maximum Severity: Moderate Worsened by: Nothing per patient Relieved by: Patient's not certain why he is here Associated Symptoms Associated Symptoms: Limited due to disorientation Narrative Narrative: Patient is a 88-year-old male with history of congestive heart failure, chronic kidney disease,n atrial fibrillation on Coumadin and hypertension and hyperlipidemia who was brought to the emergency room because [facility] does not have 24-hour nursing. He requires more than assisted living. Patient is not a good informant. He is disoriented. From what I am able to comprehend reviewing the records that accompany him he does have problems with orientation and confusion. Patient is unable to tell me if the swelling his legs is new or old worse etc. Only complaint I am able to obtain from patient has mild congestion and slight cough. He does believe he is on Coumadin. He knows he is on an anticoagulant. Review of records that accompany him indicates patient is on Coumadin. Patient states his blood pressure is normally normal. His initial blood pressure was 88/70. Prior similar symptoms: No Recent Illness/Hospitalization: Yes (New resident at [facility].) [facility] Medical History Anxiety and depression Atrial fibrillation BPH (benign prostatic hyperplasia) BPH (benign prostatic hyperplasia) Chewing tobacco dependence CKD (chronic kidney disease), stage IV COVID-19 Essential hypertension HFrEF (heart failure with reduced ejection fraction) History of DVT (deep vein thrombosis) History of pulmonary embolism Hyperlipidemia Kidney disease Nontoxic diffuse goiter Osteoarthritis Paroxysmal atrial fibrillation Home Medications acetaminophen 325 mg tablet 650 mg PO Q4H PRN fever or pain 12/05/22 [History Last Taken Unknown] bisacodyl 10 mg rectal suppository 10 mg VT DAILY PRN constipation 12/05/22 [History Last Taken Unknown] bumetanide 1 mg tablet 1 mg PO DAILY 12/05/22 [History Last Taken 09/23/23] docusate sodium 100 mg capsule 100 mg PO BID 12/05/22 [History Last Taken 09/24/23] dutasteride 0.5 mg capsule 0.5 mg PO DAILY 12/05/22 [History Last Taken 09/23/23] magnesium hydroxide 400 mg/5 mL oral suspension (Milk of Magnesia) 15 ml PO Q3-4D PRN constipation 12/05/22 [History Last Taken Unknown] metolazone 2.5 mg tablet 2.5 mg PO UD 12/05/22 [History Last Taken Unknown] metoprolol succinate 50 mg tablet,extended release 24 hr 50 mg PO DAILY 12/05/22 [History Last Taken 09/23/23] oxybutynin chloride 5 mg tablet,extended release 24 hr 5 mg PO BID 12/05/22 [History Last Taken 09/24/23] polyethylene glycol 3350 17 gram/dose oral powder (Miralax) 34 g PO DAILY PRN constipation 12/05/22 [History Last Taken Unknown] potassium chloride 20 mEq tablet,extended release 20 meq PO DAILY 12/05/22 [History Last Taken 09/22/23] tamsulosin 0.4 mg capsule 0.4 mg PO DAILY 12/05/22 [History Last Taken 09/24/23] vitamins A,C,M-jyev-cylrzo 4,296 mcg-226 mg-90 mg capsule (PreserVision AREDS) 1 cap PO BID 12/05/22 [History Last Taken 09/24/23] warfarin 2 mg tablet 2 mg PO TUTH 12/05/22 [History Last Taken 09/21/23] warfarin 3 mg tablet 3 mg PO SUMOWEFRSA 12/05/22 [History Last Taken 09/24/23] empagliflozin 10 mg tablet (Jardiance) 10 mg PO DAILY #30 tabs 07/13/23 [Rx Last Taken 09/23/23] dapagliflozin propanediol 5 mg tablet 5 mg PO DAILY 09/25/23 [History Last Taken 09/24/23] fluticasone propionate 50 mcg/actuation nasal spray,suspension 1 spray intranasal DAILY 09/25/23 [History Last Taken 09/23/23] Allergy/AdvReac Type Severity Reaction Status Date / Time No Known Allergies Allergy Verified 10/02/23 10:21 Family History Mother Alzheimer's dementia Father Vascular disease Surgical History History of appendectomy History of bilateral cataract extraction History of bladder stone History of carpal tunnel release History of prostate surgery History of radiofrequency ablation (RFA) procedure for cardiac arrhythmia (11/17/20) Social History household members: none housing: assisted living facility Smoking Status: Never smoker Smokeless tobacco user: chewing tobacco alcohol intake: never substance use type: does not use ROS ROS ED Review of Systems ROS Unobtainable: due to mental status Cardiovascular Cardiovascular: Reports other Details: He denies orthostatic symptoms. Respiratory/Chest Respiratory/Chest: Reports cough and dyspnea Gastrointestinal Gastrointestinal: Reports other; Denies diarrhea, melena or vomiting Genitourinary Genitourinary ED: Denies dysuria, hematuria or urinary frequency Hematologic/Lymphatic Hematologic/Lymphatic: Reports other Details: Patient is on Coumadin 3 mg. EXAM Physical Exam Const Vital Signs: 10/02/23 10:21 10/02/23 10:21 10/02/23 12:20 Temperature 97.6 F L Temperature Source Temporal Pulse Rate 74 70 Respiratory Rate 18 16 Respiratory Effort Normal Non-Labored Respiratory Pattern Normal Blood Pressure 88/70 L 98/70 Blood Pressure Mean 76 79 Pulse Ox 97 91 Oxygen Delivery Method Room Air Room Air Positive well nourished and well developed Constitutional Narrative: Patient has brown-colored emesis on his osei. He states he had grapefruit juice and cereal. This does not look like cereal or grapefruit juice. He appears in no distress. He is hypotensive. General Appearance ED: well developed; Negative for pallor HEENT Reports moist mucous membranes HEENT Narrative: Ears normal. Nares patent. Posterior pharynx out erythema or exudate. Negative for trauma or tenderness Eyes PERRL and EOMs intact bilaterally General Eye ED: Negative for pale conjunctiva or scleral icterus Neck no lymphadenopathy, supple and no JVD Chest Wall inspection of chest normal and palpation of chest normal Resp normal respiratory effort and No clear to auscultation bilaterally Auscultation: rales bilateral base Cardio regular rate, S1 normal heart sound, S2 normal heart sound and no murmurs Rhythm: abnormal rhythm irregularly irregular GI normal to inspection, nondistended, normoactive bowel sounds, non-tender, non-distended and no masses; Negative for hepatosplenomegaly Palpation: soft Back/Spine no CVA tenderness Cervical Spine: Negative for cervical spine tenderness Thoracic Spine / Upper Back: Negative for thoracic spinal tenderness Extremity Extremity Narrative: Patient has erythema both legs consistent with early venous stasis dermatitis. He has pitting edema of his feet and legs. Neuro No oriented x3 and CN's II-XII intact bilaterally Neuro Narrative: Patient is awake but not alert. Sensorium / Orientation: Negative for alert Psych Negative for mental status grossly normal Skin No no rashes or lesions noted and no wounds General Skin Exam: Negative for elasticity normal, jaundice or pallor MDM MDM MDM Narrative Medical decision making narrative: Patient's hypotension may be due to hypovolemia, GI bleed, cardiac etiology. Doubt significant pulmonary embolus since he is not tachypneic tachycardic. Reviewed records that accompany him. Since he is on Coumadin we will obtain PT/INR. If his BUN to creatinine ratio is elevated we will perform rectal to assess for GI bleed. CBC was obtained to assess white count differential as well as H&H and compared to baseline. Troponin to rule out cardiac ischemia. Since he has bilateral rales pitting edema and history of CHF BNP was obtained as well as chest x-ray to assess for CHF versus pneumonia. History & Record Review Additional record(s) reviewed:: Prior outpatient record (Records that accompany him from [facility]. And records from [facility] April 2021. He was hospitalized at that time for congestive heart failure), Prior ED visit (Seen for constipation.), Prior labs and No prior records Lab Data Attestation: I reviewed the patient's lab results. Lab results narrative: CBC is unremarkable and unchanged from prior. PT/INR is 32.7 and 3.2. BNP is 1381. CBC is unremarkable. PT/INR is 32.7 and 3.2 respectively. Sodium is 134. Glucose is slightly elevated 123 with normal CO2 anion gap. Lactate is elevated 2.5. BNP is elevated at 1381. BUN and creatinine are 62 and 2.52 respectively. Estimated GFR is 26. Light of patient's elevated BNP hypotension will obtain troponin to rule out cardiac ischemia. Lactate is elevated at 2.5. Insulin all likely is due to his hypotension. Cause of his hypotension is not obvious. I was informed by nursing staff that they were unable to place a Gonzales due to stricture. They attempted to use a smaller Gonzales however was not long enough to obtain urine. Bladder scan indicates the patient has 455 mL of urine in his bladder. Unable to pass catheter even coud? because of stricture shaft of penis. Will need urology consult to place Gonzales. Patient's 2-hour troponin is lower than his first troponin. Patient remains hypotensive. Reluctant to give fluids since he has history of heart failure with elevated BNP. Chest x-ray however did not show any acute evidence of heart failure Labs: Laboratory Results - last 24 hr 10/02/23 10/02/23 10:50 12:47 WBC 6.4 RBC 4.97 Hgb 14.5 Hct 44.7 MCV 89.9 MCH 29.2 MCHC 32.4 RDW Std Deviation 52.5 H RDW Coeff of Chacho 15.9 H Plt Count 310 MPV 9.4 Immature Gran % (Auto) 0.600 Neut % (Auto) 79.1 H Lymph % (Auto) 8.8 L [place] % (Auto) 8.2 Eos % (Auto) 2.2 Baso % (Auto) 1.1 H Absolute Neuts (auto) 5.0 Absolute Lymphs (auto) 0.56 L Nucleated RBC % 0 PT 32.7 H INR 3.2 Sodium 134 L Potassium 3.7 Chloride 101 Carbon Dioxide 26.0 Anion Gap 7 BUN 62 H Creatinine 2.52 H Estim Creat Clear Calc 24.13 Est GFR (MDRD) Af Amer 31 L Est GFR (MDRD) Non-Af 26 L BUN/Creatinine Ratio 24.6 H Glucose 123 H Lactic Acid 2.5 H* Calcium 8.6 Total Bilirubin 0.80 AST 16 ALT 25 Alkaline Phosphatase 75 Troponin I High Sens 54 48 B-Natriuretic Peptide 1381.4 H Total Protein 7.0 Albumin 2.8 L Globulin 4.2 Albumin/Globulin Ratio 0.7 L Radiography Chest X-Ray - ED: 1 View and Read by ED Physician Diagnostic Testing: Clinical Impression(s) from Imaging Studies Chest X-Ray 10/02/23 11:25 IMPRESSION: No acute abnormality is seen. Electronically Signed: Brandon Granda MD at 11:35 EDT , EKG Initial EKG: Attestation: I personally reviewed and interpreted this EKG as follows: Interpretation: Sinus Rhythm (Rate is 72. There is evidence of a first-degree heart block with VT interval of 264 ms. There is evidence of right bundle branch block based on QRS morphology and QRS duration is 160 ms. QT duration 470 ms. [place] is normal.) Management Discussion w/another healthcare provider: Hospitalist Discharge Plan Triage Chief Complaint: General Illness ED Provider: Mio Armendariz Dx/Rx/DC Orders Clinical Impression: Acidosis, lactic, Paroxysmal atrial fibrillation, Congestive heart failure, CKD (chronic kidney disease) Prescriptions: No Action bumetanide 1 mg tablet 1 mg PO DAILY docusate sodium 100 mg capsule 100 mg PO BID dutasteride 0.5 mg capsule 0.5 mg PO DAILY metoprolol succinate 50 mg tablet extended release 24 hr 50 mg PO DAILY oxybutynin chloride 5 mg tablet extended release 24hr 5 mg PO BID Rx Instructions: ER PER MAR potassium chloride 20 mEq tablet extended release 20 meq PO DAILY PreserVision AREDS 4,296 mcg-226 mg-90 mg capsule 1 cap PO BID metolazone 2.5 mg tablet 2.5 mg PO UD Hold Instructions: PER MAR Rx Instructions: QOD tamsulosin 0.4 mg capsule 0.4 mg PO DAILY warfarin 3 mg tablet 3 mg PO SUMOWEFRSA warfarin 2 mg tablet 2 mg PO TUTH polyethylene glycol 3350 [Miralax] 17 gram/dose powder 34 g PO DAILY PRN (Reason: constipation) magnesium hydroxide [Milk of Magnesia] 400 mg/5 mL suspension 15 ml PO Q3-4D PRN (Reason: constipation) bisacodyl 10 mg suppository 10 mg VT DAILY PRN (Reason: constipation) acetaminophen 325 mg tablet 650 mg PO Q4H PRN (Reason: fever or pain) dapagliflozin propanediol 5 mg tablet 5 mg PO DAILY fluticasone propionate 50 mcg/actuation spray,suspension 1 spray INTRANASAL DAILY Jardiance 10 mg tablet 10 mg PO DAILY Qty: 30 11RF Primary Care Provider: Luba Zavala DATABASE COORDINATOR Referrals: Luba Zavala DATABASE COORDINATOR, DATABASE COORDINATOR-C [Primary Care Provider] - Disposition Disposition: Acute Care Hospital [facility]
[2023-10-02 10:56] LABS: Absolute Lymphocyte Count 0.56 X10^3/uL (0.83-4.51); Basophil# 0.07 X10^3/uL; Basophil% 1.1 % (0-1); Eosinophil# 0.14 X10^3/uL; Eosinophils% 2.2 % (0-5); Hematocrit 44.7 % (40-54); Hemoglobin 14.5 g/dL (13.0-16.5); Lymphocyte # 0.56 X10^3/ul (0.83-4.51); Lymphocyte % 8.8 % (19-41); Mean Corp Hgb Conc 32.4 g/dL (32-36); Mean Corpuscular Hgb 29.2 pg (27.0-32.0); Mean Corpuscular Volume 89.9 fL (80-94); Mean Platelet Vol. 9.4 fl (6.2-12.0); Monocyte# 0.52 X10^3/uL; Monocyte% 8.2 % (0-10); NRBC Flagged by Analyzer 0 % (0-5); Neutrophil # 5.02 X10^3/uL (2.7-7.7); Neutrophil % 79.1 % (47-70); POSITIVE DIFFERENTIAL YES; Platelet Count 310 K/mm3 (150-450); RBC Distribution Width CV 15.9 % (11.6-14.6); RBC Distribution Width SD 52.5 fl (35.1-43.9); Red Blood Count 4.97 M/mm3 (4.6-6.2); White Blood Count 6.4 K/mm3 (4.4-11.0)
[2023-10-02 11:06] LABS: International Normalized Ratio 3.2; Prothrombin Time (Protime)PT. 32.7 SECONDS (11.7-14.9)
[2023-10-02 11:12] LABS: BNP,B-Type NATRIURETIC PEPTIDE 1381.4 pg/mL (0-100)
[2023-10-02 11:17] LABS: ALB/GLOB Ratio 0.7 RATIO (0.9-2.4); AST(SGOT) 16 U/L (15-37); Alanine Aminotransfer ALT/SGPT 25 U/L (16-61); Albumin, Serum 2.8 g/dL (3.2-5.0); Alkaline Phosphatase 75 U/L (45-117); Anion Gap 7 (5-15); BUN 62 mg/dL (7-18); BUN/Creat Ratio 24.6 RATIO (10-20); Calcium,Total 8.6 mg/dL (8.5-10.1); Chloride 101 mmol/L (98-107); Creatinine, Serum 2.52 mg/dL (0.70-1.30); EST Glomerular Filtration Rate 26 mL/min (>60); Est Glom Filt Rate - Afr Amer 31 mL/min (>60); Estimated Creatinine Clearance 24.13 ml/min; Globulin 4.2 g/dL (2.2-4.2); Glucose 123 mg/dL (74-106); Potassium 3.7 mmol/L (3.5-5.1); Sodium Level 134 mmol/L (136-145); Troponin-I HS (w/2H Reflex) 54 pg/mL (3.0-78.0)
--- NOTE | 2023-10-02 11:25 | RAD_ITS ---
STUDY: X-RAY CHEST REASON FOR EXAM: Male, 88 years old. Bibasilar rales, hypertensive TECHNIQUE: Single AP portable view of the chest. COMPARISON: Comparison is made with prior study September 25, 2023. FINDINGS: EKG electrodes are seen. The lungs are clear and expanded. There is no demonstrated pleural abnormality. Normal size heart. Normal mediastinum and manan. Normal visualized pulmonary arteries. There is atherosclerotic tortuosity of the aortic arch and descending thoracic aorta. There are diffuse degenerative changes of the visualized thoracic spine. Normal visualized ribs, clavicles, and shoulders. There is no demonstrated abnormality of the visualized soft tissue structures of the upper abdomen. RAD/Chest 1 View (Portable) IMPRESSION: No acute abnormality is seen. Electronically Signed: Brandon Granda MD at 11:35 EDT ,
[2023-10-02 11:27] LABS: Lactic Acid 2.5 mmol/L (0.4-1.9)
--- NOTE | 2023-10-02 11:37 | ED.RN ---
this rn attempts to straight cath patient with additional RN Pepper. While attempting cath, this RN is unable to advance catheter into the meatus. this rn also attempts to use a coude catheter with no success. female straight cath attempted- able to advance but the catheter was not long enough to obtain urine sample. Dr. Armendariz made aware. male external catheter applied at this time.
[2023-10-02 12:20] VITALS: BP 98/70; PULSE 70; RESP 16; O2SAT 91
[2023-10-02 12:53] LABS: Reflex Troponin-HS? (from REC) Y
[2023-10-02 13:17] LABS: Troponin-I HS 48 pg/mL (3.0-78.0)
[2023-10-02 13:53] VITALS: BP 98/73; PULSE 97; RESP 16; TEMP 36.4; O2SAT 95
--- NOTE | 2023-10-02 13:59 | HP.PCM.HOS_ITS ---
[facility] - General General Date of Service: 10/02/23 Chief Complaint: Assisted living does not have 24-hour care HPI Narrative GERARDO WILSON, is a 88 M who presents after being sent in by his assisted living claiming they do not have 24-hour care to be able to handle him and sent him to the emergency room. Patient was noted to have blood pressure of 88/70 but responded without any additional therapy. Being that the assisted living would not be able to take him back, the hospital service was contacted for admission. The patient himself denies any complaints and is wondering when he can go back home. [facility] Medical History Anxiety and depression Atrial fibrillation BPH (benign prostatic hyperplasia) BPH (benign prostatic hyperplasia) Chewing tobacco dependence CKD (chronic kidney disease), stage IV COVID-19 Essential hypertension HFrEF (heart failure with reduced ejection fraction) History of DVT (deep vein thrombosis) History of pulmonary embolism Hyperlipidemia Kidney disease Nontoxic diffuse goiter Osteoarthritis Paroxysmal atrial fibrillation Home Medications acetaminophen 325 mg tablet 650 mg PO Q4H PRN fever or pain 12/05/22 [History Last Taken Unknown] bisacodyl 10 mg rectal suppository 10 mg OH DAILY PRN constipation 12/05/22 [History Last Taken Unknown] bumetanide 1 mg tablet 1 mg PO DAILY 12/05/22 [History Last Taken 09/23/23] docusate sodium 100 mg capsule 100 mg PO BID 12/05/22 [History Last Taken 09/24/23] dutasteride 0.5 mg capsule 0.5 mg PO DAILY 12/05/22 [History Last Taken 09/23/23] magnesium hydroxide 400 mg/5 mL oral suspension (Milk of Magnesia) 15 ml PO Q3-4D PRN constipation 12/05/22 [History Last Taken Unknown] metolazone 2.5 mg tablet 2.5 mg PO UD 12/05/22 [History Last Taken Unknown] metoprolol succinate 50 mg tablet,extended release 24 hr 50 mg PO DAILY 12/05/22 [History Last Taken 09/23/23] oxybutynin chloride 5 mg tablet,extended release 24 hr 5 mg PO BID 12/05/22 [History Last Taken 09/24/23] polyethylene glycol 3350 17 gram/dose oral powder (Miralax) 34 g PO DAILY PRN constipation 12/05/22 [History Last Taken Unknown] potassium chloride 20 mEq tablet,extended release 20 meq PO DAILY 12/05/22 [History Last Taken 09/22/23] tamsulosin 0.4 mg capsule 0.4 mg PO DAILY 12/05/22 [History Last Taken 09/24/23] vitamins A,C,Y-ywrl-aqqmnu 4,296 mcg-226 mg-90 mg capsule (PreserVision AREDS) 1 cap PO BID 12/05/22 [History Last Taken 09/24/23] warfarin 2 mg tablet 2 mg PO TUTH 12/05/22 [History Last Taken 09/21/23] warfarin 3 mg tablet 3 mg PO SUMOWEFRSA 12/05/22 [History Last Taken 09/24/23] empagliflozin 10 mg tablet (Jardiance) 10 mg PO DAILY #30 tabs 07/13/23 [Rx Last Taken 09/23/23] dapagliflozin propanediol 5 mg tablet 5 mg PO DAILY 09/25/23 [History Last Taken 09/24/23] fluticasone propionate 50 mcg/actuation nasal spray,suspension 1 spray intranasal DAILY 09/25/23 [History Last Taken 09/23/23] Allergy/AdvReac Type Severity Reaction Status Date / Time No Known Allergies Allergy Verified 10/02/23 10:21 Family History Mother Alzheimer's dementia Father Vascular disease Surgical History History of appendectomy History of bilateral cataract extraction History of bladder stone History of carpal tunnel release History of prostate surgery History of radiofrequency ablation (RFA) procedure for cardiac arrhythmia (11/17/20) Social History household members: none housing: assisted living facility Smoking Status: Never smoker Smokeless tobacco user: chewing tobacco alcohol intake: never substance use type: does not use ROS ROS Narrative All review of systems were negative except as mentioned above in the history of present illness and the other review of systems. Vital Signs Vital Signs Vital Signs: 10/02/23 10:21 10/02/23 10:21 10/02/23 12:20 Temperature 36.4 C L Temperature Source Temporal Pulse Rate 74 70 Respiratory Rate 18 16 Respiratory Effort Normal Non-Labored Respiratory Pattern Normal Blood Pressure 88/70 L 98/70 Blood Pressure Mean 76 79 Pulse Ox 97 91 Oxygen Delivery Method Room Air Room Air 10/02/23 13:53 Temperature 36.4 C L Temperature Source Pulse Rate 97 Respiratory Rate 16 Respiratory Effort Respiratory Pattern Blood Pressure 98/73 Blood Pressure Mean 81 Pulse Ox 95 Oxygen Delivery Method Weight Weight: 93.2 kg Body Mass Index (BMI) 28.8 Physical Exam Const Constitutional Narrative: Awake. Oriented to place. Knew the year is 2023 but does not know the month and much less the day. HEENT normocephalic, head/scalp atraumatic and moist oral mucous membranes Resp normal respiratory effort, no retractions, no use of accessory muscles and clear to auscultation bilaterally Cardio regular rate, regular rhythm, S1 normal heart sound and S2 normal heart sound GI normal to inspection, nondistended, normoactive bowel sounds, soft to palpation, non-tender and non-distended Extremity normal to inspection, full ROM and no clubbing, cyanosis or edema Skin Skin Narrative: Numerous actinic keratoses over his back. Neuro oriented x3, CN's II-XII intact bilaterally, moves all extremities and no focal motor deficits Sensorium / Orientation: awake and alert Results Lab / Micro Data Attestation: I reviewed the patient's lab results. 10/02/23 10:50 10/02/23 10:50 Labs: Laboratory Results - last 24 hr 10/02/23 10:50: WBC 6.4, RBC 4.97, Hgb 14.5, Hct 44.7, MCV 89.9, MCH 29.2, MCHC 32.4, RDW Std Deviation 52.5 H, RDW Coeff of Chacho 15.9 H, Plt Count 310, MPV 9.4, Immature Gran % (Auto) 0.600, Neut % (Auto) 79.1 H, Lymph % (Auto) 8.8 L, [place] % (Auto) 8.2, Eos % (Auto) 2.2, Baso % (Auto) 1.1 H, Absolute Neuts (auto) 5.0, Absolute Lymphs (auto) 0.56 L, Nucleated RBC % 0, PT 32.7 H, INR 3.2, Sodium 134 L, Potassium 3.7, Chloride 101, Carbon Dioxide 26.0, Anion Gap 7, BUN 62 H, Creatinine 2.52 H, Estim Creat Clear Calc 24.13, Est GFR (MDRD) Af Amer 31 L, Est GFR (MDRD) Non-Af 26 L, BUN/Creatinine Ratio 24.6 H, Glucose 123 H, Lactic Acid 2.5 H*, Calcium 8.6, Total Bilirubin 0.80, AST 16, ALT 25, Alkaline Phosphatase 75, Troponin I High Sens 54, B-Natriuretic Peptide 1381.4 H, Total Protein 7.0, Albumin 2.8 L, Globulin 4.2, Albumin/Globulin Ratio 0.7 L 10/02/23 12:47: Troponin I High Sens 48 Imaging Radiology Impression Chest X-Ray 10/02/23 11:25 IMPRESSION: No acute abnormality is seen. Electronically Signed: Brandon Granda MD at 11:35 EDT , Assessment & Plan Assessment/Plan (1) Debility: PLAN: Plan Debility * Assisted living stating that they are unable to provide the patient 24-hour care and unable to care for him at this time. * PT OT evaluate and treat * Case management to assist on disposition Transient hypotension * Responded without any treatment in the emergency room * Will hold off on his diuretics for the time being with anticipation of resumption hopefully in the next day or 2 possibly modify dosing's. Additionally since his diuretics to be held, will hold off on his potassium. Chronic conditions * HFrEF: EF 25% with severe pulmonary artery hypertension with PASP of 100 mmHg. Hold diuretics for now. No SUSANNAH inhibitor/angiotensin receptor juan carlos given chronic kidney disease. * Atrial fibrillation: Continue with metoprolol as BP and heart rate allow. INR is 3.2. Will hold off on warfarin today with a plan to resume that on the . * Chronic kidney disease stage IV: Appears to be stable * BPH: Continue with tamsulosin and dutasteride * Diabetes mellitus type 2: Sliding scale insulin as well as empagliflozin VTE prophylaxis: Not indicated as patient is already anticoagulated. CODE STATUS: Addressed with the patient's daughter, Merari. Patient previously been DNR comfort care. Explained to her that for medically managing him that I would recommend DNR Comfort Care arrest no intubation. She was in agreement to that. Charges/Coding Visit Charges Inpatient E&M: 61314 Init Hosp L3
[2023-10-02 14:53] LABS: Reflex Lactate? Y
[2023-10-02 15:28] VITALS: BP 103/77; PULSE 72; RESP 20; TEMP 36.3; O2SAT 100
[2023-10-02 16:14] LABS: Lactic Acid 1.3 mmol/L (0.4-1.9)
[2023-10-02 18:57] LABS: Bedside Glucose 110 mg/dL (74-106)
[2023-10-02 21:13] VITALS: BP 96/67; PULSE 79; RESP 16; TEMP 36.6; O2SAT 94
[2023-10-02] MEDS: Multivitamin (Healthy Eyes) Capsule 1 CAP PO (21:18)
[2023-10-02] MEDS: Docusate Sodium 100 MG Capsule PO (21:18)
[2023-10-02] MEDS: Acetaminophen 325 MG Tablet 650 MG PO (21:18)
[2023-10-02 22:35] LABS: Bedside Glucose 136 mg/dL (74-106)
[2023-10-03 03:15] VITALS: BP 101/66; PULSE 74; RESP 16; TEMP 36.4; O2SAT 98
[2023-10-03 06:56] LABS: Bedside Glucose 112 mg/dL (74-106)
[2023-10-03 08:30] LABS: Absolute Lymphocyte Count 0.79 X10^3/uL (0.83-4.51); Basophil# 0.07 X10^3/uL; Basophil% 1.2 % (0-1); Eosinophil# 0.28 X10^3/uL; Eosinophils% 4.9 % (0-5); Hematocrit 45.6 % (40-54); Hemoglobin 14.6 g/dL (13.0-16.5); International Normalized Ratio 3.2; Lymphocyte # 0.79 X10^3/ul (0.83-4.51); Lymphocyte % 13.8 % (19-41); Mean Corpuscular Hgb 28.6 pg (27.0-32.0); Mean Corpuscular Volume 89.2 fL (80-94); Mean Platelet Vol. 9.7 fl (6.2-12.0); Monocyte# 0.59 X10^3/uL; Monocyte% 10.3 % (0-10); NRBC Flagged by Analyzer 0 % (0-5); Neutrophil # 3.97 X10^3/uL (2.7-7.7); Neutrophil % 69.3 % (47-70); Platelet Count 337 K/mm3 (150-450); Prothrombin Time (Protime)PT. 32.2 SECONDS (11.7-14.9); RBC Distribution Width CV 16.1 % (11.6-14.6); RBC Distribution Width SD 52.3 fl (35.1-43.9); Red Blood Count 5.11 M/mm3 (4.6-6.2); White Blood Count 5.7 K/mm3 (4.4-11.0)
[2023-10-03 08:59] LABS: ALB/GLOB Ratio 0.7 RATIO (0.9-2.4); AST(SGOT) 18 U/L (15-37); Alanine Aminotransfer ALT/SGPT 26 U/L (16-61); Albumin, Serum 2.9 g/dL (3.2-5.0); Alkaline Phosphatase 78 U/L (45-117); Anion Gap 7 (5-15); BUN 61 mg/dL (7-18); BUN/Creat Ratio 24.6 RATIO (10-20); Chloride 101 mmol/L (98-107); Creatinine, Serum 2.48 mg/dL (0.70-1.30); EST Glomerular Filtration Rate 26 mL/min (>60); Est Glom Filt Rate - Afr Amer 32 mL/min (>60); Estimated Creatinine Clearance 24.94 ml/min; Glucose 97 mg/dL (74-106); Potassium 3.5 mmol/L (3.5-5.1); Protein, Total 6.9 g/dL (6.4-8.2); Sodium Level 135 mmol/L (136-145)
[2023-10-03 09:28] VITALS: BP 97/71; PULSE 70; RESP 16; TEMP 36.3; O2SAT 97
[2023-10-03] MEDS: Docusate Sodium 100 MG Capsule PO (09:36)
[2023-10-03] MEDS: Tolterodine Tartrate 2 MG CAP.SA PO (09:36)
[2023-10-03] MEDS: Empagliflozin 10 MG Tablet PO (09:36)
[2023-10-03] MEDS: Finasteride 5 MG Tablet PO (09:36)
[2023-10-03] MEDS: Tamsulosin HCl 0.4 MG Capsule PO (09:36)
[2023-10-03] MEDS: Multivitamin (Healthy Eyes) Capsule 1 CAP PO ×2 (09:36→22:04)
[2023-10-03] MEDS: Fluticasone 0.05% 1 SPRAY NASAL.SRY NASAL (09:37)
[2023-10-03] MEDS: Acetaminophen 325 MG Tablet 650 MG PO ×2 (09:40→16:12)
--- NOTE | 2023-10-03 10:31 | CASEMGMT ---
Patient is from [facility] Per physician documentation [facility] is not able to take patient back as they cannot care for him. SW met with patient. Introduced self and role at [facility]. SW talked with patient about [facility] not being able to care for him. Patient told SW that is bull. Patient said his daughter and son in law are checking into this. Patient said his daughter will be in shortly. SW will come back when patient's daughter arrives. Shawanda DEL REAL
--- NOTE | 2023-10-03 11:12 | CASEMGMT ---
SW called patient's daughter, Merari. FERNANDO introduced self and role at [facility]. SW discussed d/c planning and that [facility] is not able to care for patient. SW explained SW has a list of a facilities that take his insurance. SW asks that they pick 3 or 4 facilities they would be okay with and SW will contact the facilities. FERNANDO told Merari KING will leave the list in patient's room. SW provided patient with a list of detention facility providers including quality and resource use data and consistent with patient?s preferred geographic region, medical needs, and insurance network were provided from the [facility]. SW explained to patient that SW spoke with his daughter and she will be in sometime to help him pick a few facilities. Patient asked why he cannot go back to [facility]. SW told patient they cannot care for him as he requires more care than they can offer. Patient again did not like that answer, but verbalized understanding. Plan: SNF pending facility choices and insurance approval. Shawanda Boston APPLICATION PROGRAMMER ANALYST NASIMA
--- NOTE | 2023-10-03 11:28 | CASEMGMT ---
FERNANDO received a call from Nataly at [facility] [address]. FERNANDO let Nataly know FERNANDO spoke with patient's daughter and she is going to work on picking a retirement facility with patient. Nataly said they had to pick patient up and move him to his chair all weekend and he started to swell up again. Shawanda DEL REAL
[2023-10-03 11:36] VITALS: BP 94/77; PULSE 84; RESP 16; TEMP 36.4; O2SAT 96
[2023-10-03 12:03] LABS: Bedside Glucose 188 mg/dL (74-106)
--- NOTE | 2023-10-03 15:05 | CASEMGMT ---
Met with pt to complete SOSA form. SOSA form explained to pt at this time who voiced understanding and signed form. Original form placed in pt?s chart and copy provided to the pt. Yolanda Jacobs RN CM
[2023-10-03 15:36] VITALS: BP 95/71; PULSE 78; RESP 16; TEMP 36.2; O2SAT 95
--- NOTE | 2023-10-03 15:42 | PCM.PN.HOSP ---
Reason for Visit Reason for Visit: Weakness Subjective Subjective Patient is an 88-year-old white male who presented to the emergency department at [facility] on 10/02/2023 for generalized weakness. He had a recent hospitalization here from 09/25/2023 through 09/28/2023 and was evaluated by physical therapy and Occupational Therapy after being diuresed and treated for heart failure. His notes were sent back to his assisted living center and they felt they could take care of him however after he returned he was having significant issues with mobility and it was requiring 2 people to maximal assist him to get out of a chair. He had an echocardiogram done at his last hospitalization which showed an EF of 25%, severe concentric LVH with diastolic dysfunction, severe segmental diastolic dysfunction, severe pulmonary hypertension with his pulmonary artery systolic pressures at greater than 100 mmHg and moderate to severe aortic valve stenosis with a mean aortic valve gradient of 34 mmHg. Upon presentation here his vital signs were noted to be stable however he did appear to be hypotensive with blood pressure of 88/70. Upon previous review of his blood pressures while he was previously hospitalized he seems to run on the low side which minimizes the amount we can diurese him. He was stable on room air with a sat between 91 and 97%. He is afebrile and had a respiratory rate of 18. Heart rate was 74. His CBC was unremarkable. INR was 3.2. He is chronically anticoagulated. Chemistry panel revealed chronic stable hyponatremia with a sodium of 134, CKD that appears to be stable with a BUN of 62 and a serum creatinine of 2.5 to, glucose of 123 and a lactic acid at 2.5 with a repeat at 1.3. His liver functions were normal. Cardiac enzymes were 54 and 48 respectively. His BNP was markedly elevated at 1381.4 which is slightly lower than at his previous admission. Chest x-ray shows no acute pulmonary abnormalities. Patient has no complaints at the time of my evaluation. I had a long discussion with his daughter who states he had worsening swelling and increasing shortness of breath however not hypoxic. Shortness of breath is predominantly with exertion. He has gotten markedly weaker and she has noticed that his memory has declined significantly as well. We reviewed his echocardiogram and discussed hospice. She is interested in talking with hospice with regards to dispo discharge with hospice potentially. Objective Data Objective Data Vital Signs: Vital Signs Temp Pulse Resp BP Pulse Ox O2 Del Method 97.2 F L 78 16 95/71 95 Room Air 10/03/23 15:36 10/03/23 15:36 10/03/23 15:36 10/03/23 15:36 10/03/23 15:36 10/03/23 15:36 Oxygen Delivery Method Room Air Weight: 93.2 kg Body Mass Index (BMI) 28.8 Intake & Output: Intake and Output for Last 24 Hours 10/01/23 10/02/23 10/03/23 23:59 23:59 23:59 Intake Total 300 / 300 420 / 420 Output Total 250 / 550 850 / 850 Balance 50 / -250 -430 / -430 Lab / Micro Data 10/03/23 07:30 10/03/23 07:30 Labs: Laboratory Results - last 24 hr 10/02/23 15:30: Lactic Acid 1.3 10/02/23 17:19: POC Glucose 110 H 10/02/23 21:23: POC Glucose 136 H 10/03/23 06:28: POC Glucose 112 H 10/03/23 07:30: WBC 5.7, RBC 5.11, Hgb 14.6, Hct 45.6, MCV 89.2, MCH 28.6, MCHC 32.0, RDW Std Deviation 52.3 H, RDW Coeff of Chacho 16.1 H, Plt Count 337, MPV 9.7, Immature Gran % (Auto) 0.500, Neut % (Auto) 69.3, Lymph % (Auto) 13.8 L, [place] % (Auto) 10.3 H, Eos % (Auto) 4.9, Baso % (Auto) 1.2 H, Absolute Neuts (auto) 4.0, Absolute Lymphs (auto) 0.79 L, Nucleated RBC % 0, PT 32.2 H, INR 3.2, Sodium 135 L, Potassium 3.5, Chloride 101, Carbon Dioxide 27.0, Anion Gap 7, BUN 61 H, Creatinine 2.48 H, Estim Creat Clear Calc 24.94, Est GFR (MDRD) Af Amer 32 L, Est GFR (MDRD) Non-Af 26 L, BUN/Creatinine Ratio 24.6 H, Glucose 97, Calcium 9.0, Total Bilirubin 0.90, AST 18, ALT 26, Alkaline Phosphatase 78, Total Protein 6.9, Albumin 2.9 L, Globulin 4.0, Albumin/Globulin Ratio 0.7 L 10/03/23 11:40: POC Glucose 188 H Physical Exam Const alert and no apparent distress; Negative for healthy appearing Constitutional Narrative: Pleasantly confused, elderly, white male, sitting up in bed with a friend at the bedside, appears nontoxic and pleasant Orientation / Consciousness: confused HEENT head/scalp atraumatic and moist oral mucous membranes HEENT Narrative: Dentition is poor, Mallampati is 2, no thrush Head and Scalp: normocephalic Eyes PERRL, EOMs intact bilaterally and conjunctivae normal Eyes Narrative: No scleral icterus Neck no lymphadenopathy and supple Neck Narrative: Trachea midline, no thyroid enlargement Resp normal respiratory effort, no retractions, no use of accessory muscles and No clear to auscultation bilaterally Resp Narrative: Fine crackles at bases bilaterally but no signs of respiratory distress Auscultation: crackles; Negative for rhonchi or wheezes Cardio regular rate, regular rhythm, S1 normal heart sound, no rub, no gallops and no clicks; Negative for no murmurs Cardio Narrative: Soft S2, 4 out of 6 systolic murmur loudest at right upper sternal border that radiates to both carotids GI normal to inspection, nondistended, normoactive bowel sounds, soft to palpation and non-tender Extremity Extremity Narrative: Pedal pulses are 1+ bilaterally, radial pulses 2+ bilaterally, 2-3+ bilateral lower extremity pitting edema, no cyanosis or clubbing Neuro moves all extremities and no focal motor deficits Neuro Narrative: Scattered ecchymosis Sensorium / Orientation: awake, alert and oriented to person Speech: speech normal Psych affect normal Psych Narrative: Very pleasant but mildly agitated that he is in the hospital, interacts appropriately, thought processes are somewhat tangential Assessment & Plan Assessment/Plan (1) Debility: (2) Acidosis, lactic: (3) Chronic kidney disease: (4) Acute dyspnea: (5) VAZQUEZ (dyspnea on exertion): (6) Congestive heart failure: PLAN: Plan Generalized weakness and debility secondary to age and medical comorbidities -PT/OT following -Initial plan was for placement into a residential feels silly for ongoing therapy services however upon review of his echocardiogram and overall condition I feel that he would be appropriate for hospice and discussed this extensively with his family who is interested in discussing things with hospice -I am markedly concerned that a discharge back to his assisted living environment or to skilled facility or elsewhere with his current medical conditions would result in frequent recurrent hospitalizations in his daughter agrees Dyspnea/dyspnea on exertion -Saturations appear stable and this appears to be worsening over time -Like related to his severe EF reduction and worsening aortic valve disease -Will optimize is much as possible Hypotension -Patient with fairly significant aortic valve stenosis and is likely preload dependent -Also with severe rhythm reduced ejection fraction with an EF of 25% -Hypotension is likely multifactorial related to this however it precludes diuresis to optimize him with regards to his left-sided heart failure -Will continue to avoid diuresis for now as his blood pressures are tenuous but currently stable and monitor for any signs of volume overload Lactic acidosis -Likely related to the above in combination with his CKD -Resolved 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 -Most recent echocardiogram done on 09/26/2023 showed severe concentric LVH with diastolic dysfunction, EF of 25% with severe segmental systolic dysfunction, pulmonary hypertension with pulmonary systolic pressures greater than 100 mmHg, moderate to severe aortic valve stenosis with a mean aortic valve gradient of 34 mmHg -Blood pressures preclude aggressive diuresis--> like related to his poor EF and aortic valve disease -Diuresis as able but hold home Bumex and metolazone for now -Continue home metoprolol -Continue SLGT2 inhibitor -Patient is at high risk for sudden cardiac with an EF of 25% History of atrial fibrillation -Continue home metoprolol -Continue Coumadin for now -INR is stable at 3.2 -Repeat INR in a.m. CKD stage IV -Baseline serum creatinine is most recently between 2.3 and 2.6 -Currently stable at 2.48 -Continue to monitor -No current need for dialysis History of DVT/PE -Continue Coumadin -INR 3.2 next-repeat INR in a.m. 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 I had an extensive conversation with his daughter and explained his heart failure in conjunction with his CKD and his overall blood pressures. She is interested in talking to hospice but not yet made a decision whether she will pursue hospice yet or not. She shares the same concern I have with him going to a nursing facility that he will be in and out of the hospital and I suspect with his overall condition no matter where we send him that will be the end result is multiple admissions to the hospital trying to optimize either his heart failure or his renal dysfunction in the setting of combined heart failure and moderate to severe aortic stenosis. Hospice consult was placed and discussed with social media project manager. I do anticipate that hospice will arrange a meeting for tomorrow with family. Patient has dementia at baseline and is nondecisional. His POA is his daughter Merari with whom I spoke. Charges/Coding Visit Charges Inpatient E&M: 63839 Subs Hosp L3
--- NOTE | 2023-10-03 15:49 | CASEMGMT ---
SW checked with patient. His daughter did come to the hospital. She took the list with her. FERNANDO will check back tomorrow. Shawanda DEL REAL
[2023-10-03] MEDS: Jantoven 2 MG Tablet PO (16:09)
[2023-10-03 16:28] LABS: Bedside Glucose 113 mg/dL (74-106)
[2023-10-03 22:00] VITALS: BP 103/69; PULSE 78; RESP 18; TEMP 36.7; O2SAT 97
[2023-10-04 06:59] LABS: Bedside Glucose 105 mg/dL (74-106)
[2023-10-04 07:06] VITALS: BP 107/81; PULSE 79; RESP 18; TEMP 36.6; O2SAT 94
[2023-10-04 07:45] LABS: Anion Gap 8 (5-15); BUN 58 mg/dL (7-18); Chloride 101 mmol/L (98-107); Creatinine, Serum 2.32 mg/dL (0.70-1.30); EST Glomerular Filtration Rate 29 mL/min (>60); Est Glom Filt Rate - Afr Amer 35 mL/min (>60); Estimated Creatinine Clearance 26.66 ml/min; Glucose 88 mg/dL (74-106); Magnesium 2.4 mg/dL (1.6-2.6); Phosphorus 2.9 mg/dL (2.5-4.9); Potassium 3.7 mmol/L (3.5-5.1); Sodium Level 136 mmol/L (136-145)
[2023-10-04 07:58] VITALS: BP 108/73; PULSE 78; RESP 17; TEMP 36.6; O2SAT 97
[2023-10-04 08:14] LABS: International Normalized Ratio 2.8; Prothrombin Time (Protime)PT. 28.9 SECONDS (11.7-14.9)
[2023-10-04] MEDS: Acetaminophen 325 MG Tablet 650 MG PO ×2 (08:17→17:38)
[2023-10-04] MEDS: Fluticasone 0.05% 1 SPRAY NASAL.SRY NASAL (08:18)
[2023-10-04] MEDS: Multivitamin (Healthy Eyes) Capsule 1 CAP PO (08:18)
[2023-10-04] MEDS: Tamsulosin HCl 0.4 MG Capsule PO (08:18)
[2023-10-04 08:19] VITALS: BP 108/73; PULSE 78
[2023-10-04] MEDS: Empagliflozin 10 MG Tablet PO (08:19)
[2023-10-04] MEDS: Finasteride 5 MG Tablet PO (08:19)
[2023-10-04] MEDS: Metoprolol(XL)Succ 50 MG Tablet PO (08:19)
[2023-10-04] MEDS: Tolterodine Tartrate 2 MG CAP.SA PO (08:19)
--- NOTE | 2023-10-04 09:20 | CASEMGMT ---
Physician spoke to patient's daughter about Hospice and she is agreeable to talk with Hospice. SW spoke with charge account identification clerk who made the referral this am. Preeti from Hospice is at [facility] now talking with patient and his daughter. Shawanda DEL REAL
--- NOTE | 2023-10-04 10:18 | CASEMGMT ---
Addendum entered by Shawanda Boston 10/04/23 10:28: Family did sign with [facility]. Shawanda DEL REAL Original Note: SW and FERNANDO Lucas met with patient, his daughter Merari, and Preeti from Hospice. SW answered Merari's questions regarding nursing homes. [facility] and second would be [facility]. SW let them know SW will work on referrals and get back to them. SW asked FERNANDO Lucas to make a referral to [facility]. Shawanda DEL REAL
--- NOTE | 2023-10-04 10:39 | CASEMGMT ---
Addendum entered by Shayy Villanueva 10/04/23 13:38: [facility] unable to accept pt at this time. LUDWIN Hidalgo Addendum entered by Shayy Villanueva 10/04/23 13:07: SW followed up on referral. Bella reports she is working on admissions now and will return SW call in 10 minutes. LUDWIN Hidalgo Original Note: Social Work- Pt was previously provided with a list of SNF providers including quality and resource use data and consistent with the patient?s preferred geographic region, medical needs, and insurance network from the [facility] Guide. Pt selected [facility] as his facility of choice. A referral accompanied by clinical documentation was sent via [facility] to [facility]. FERNANDO called Bella at [facility] to discuss referral; voicemail left. Plan: D/c to [facility] under hospice care pending approval. LUDWIN Hidalgo
[2023-10-04 11:39] LABS: Bedside Glucose 137 mg/dL (74-106)
--- NOTE | 2023-10-04 13:38 | CASEMGMT ---
Social Work- [facility] reported that they are unable to accept pt referral. Pt second choice is [facility]. SW submitted referral and clinical documentation to [facility]. Pt advised of [facility] referral d/t [facility] declination. 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
--- NOTE | 2023-10-04 14:05 | CASEMGMT ---
Addendum entered by Shayy Villanueva 10/04/23 14:56: Completed PASRR sent to [facility]. LUDWIN Hidalgo Original Note: Social Work- [facility] is willing to accept. Pt daughter/POA,Merari, notified. to be advised pt has placement. Plan: [facility] under hospice upon d/c. LUDWIN Hidalgo
--- NOTE | 2023-10-04 14:12 | PCM.DC.SUM ---
Providers Date of Admission: 10/02/23 Date of Discharge: 10/04/23 Primary Care Physician: Luba Zavala, PEDRITO Consultations 10/03/23 16:03 Consult: Hospice / Palliative Care Routine Consulting Provider: [facility] Reason for Consult: severe heart disease and failure with aortic stenosis EMERGENT Consult: No MD Notified: Yes Date Notified: 10/03/23 Time Notified: 16:03 Method of Notification: Answering Service Reason For Visit: DEBILITY Diagnosis Discharge Diagnosis (1) Debility: Status: Acute Code(s): R53.81 - Other malaise (2) Acidosis, lactic: Status: Acute Code(s): E87.20 - Acidosis, unspecified (3) Chronic kidney disease: Status: Chronic Code(s): N18.9 - Chronic kidney disease, unspecified (4) Acute dyspnea: Status: Acute Code(s): R06.00 - Dyspnea, unspecified (5) VAZQUEZ (dyspnea on exertion): Status: Acute Code(s): R06.09 - Other forms of dyspnea (6) Congestive heart failure: Status: Acute Code(s): I50.9 - Heart failure, unspecified Medications at Discharge Home Medications acetaminophen 325 mg tablet 650 mg PO Q4H PRN fever or pain 12/05/22 bisacodyl 10 mg rectal suppository 10 mg MA DAILY PRN constipation 12/05/22 docusate sodium 100 mg capsule 100 mg PO BID 12/05/22 dutasteride 0.5 mg capsule 0.5 mg PO DAILY 12/05/22 magnesium hydroxide 400 mg/5 mL oral suspension (Milk of Magnesia) 15 ml PO Q3-4D PRN constipation 12/05/22 polyethylene glycol 3350 17 gram/dose oral powder (Miralax) 34 g PO DAILY PRN constipation 12/05/22 potassium chloride 20 mEq tablet,extended release 20 meq PO DAILY 12/05/22 tamsulosin 0.4 mg capsule 0.4 mg PO DAILY 12/05/22 vitamins A,C,D-atbd-hrptxh 4,296 mcg-226 mg-90 mg capsule (PreserVision AREDS) 1 cap PO BID 12/05/22 warfarin 2 mg tablet 2 mg PO TUTH 12/05/22 warfarin 3 mg tablet 3 mg PO SUMOWEFRSA 12/05/22 empagliflozin 10 mg tablet (Jardiance) 10 mg PO DAILY #30 tabs 07/13/23 fluticasone propionate 50 mcg/actuation nasal spray,suspension 1 spray intranasal DAILY 09/25/23 bumetanide 1 mg tablet 1 mg PO DAILY #1 TAB 10/04/23 metolazone 2.5 mg tablet 2.5 mg PO UD #1 TAB 10/04/23 metoprolol succinate 50 mg tablet,extended release 24 hr 50 mg PO DAILY #1 TAB 10/04/23 Hospital Course Operations None Procedures EKG and - (Chest x-ray) Summary of Care Provided Minutes Spent on Discharge: 37 Hospital Course: Patient is an 88-year-old white male who presented to the emergency department at [facility] on 10/02/2023 for generalized weakness. He had a recent hospitalization here from 09/25/2023 through 09/28/2023 and was evaluated by physical therapy and Occupational Therapy after being diuresed and treated for heart failure. His notes were sent back to his assisted living center and they felt they could take care of him however after he returned he was having significant issues with mobility and it was requiring 2 people to maximal assist him to get out of a chair. He had an echocardiogram done at his last hospitalization which showed an EF of 25%, severe concentric LVH with diastolic dysfunction, severe segmental diastolic dysfunction, severe pulmonary hypertension with his pulmonary artery systolic pressures at greater than 100 mmHg and moderate to severe aortic valve stenosis with a mean aortic valve gradient of 34 mmHg. Upon presentation here his vital signs were noted to be stable however he did appear to be hypotensive with blood pressure of 88/70. Upon previous review of his blood pressures while he was previously hospitalized he seems to run on the low side which minimizes the amount we can diurese him. He was stable on room air with a sat between 91 and 97%. He is afebrile and had a respiratory rate of 18. Heart rate was 74. His CBC was unremarkable. INR was 3.2. He is chronically anticoagulated. Chemistry panel revealed chronic stable hyponatremia with a sodium of 134, CKD that appears to be stable with a BUN of 62 and a serum creatinine of 2.5 to, glucose of 123 and a lactic acid at 2.5 with a repeat at 1.3. His liver functions were normal. Cardiac enzymes were 54 and 48 respectively. His BNP was markedly elevated at 1381.4 which is slightly lower than at his previous admission. Chest x-ray showed no acute pulmonary abnormalities. With his previous echo being so poor I had a long discussion with his daughter who stated that he has been having worsening swelling and increasing shortness of breath on and off even since discharge a few days ago. I did review her echocardiogram with him and given the fact of his severe cardiac issues as well as his chronic renal disease and worsening dementia she was interested in talking to hospice. Hospice met with the patient and family on 10/04/2023 for and they did decide to do hospice in a nursing facility. He was accepted at [facility] and was able to be discharged with hospice on 10/04/2023 to [facility]. He is to continue most of his medications however we did make his Bumex and metolazone to be held if his systolic pressure is less than 90. 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 Hyperlipidemia Constipation Dementia-type unknown Physical Exam Const alert, no apparent distress, average body habitus and well nourished; Negative for healthy appearing Constitutional Narrative: Pleasantly confused, elderly, white male, sitting up in a chair at the bedside, daughter at bedside, appears nontoxic and pleasant General Appearance: cooperative, comfortable, well kempt and well developed Orientation / Consciousness: awake, oriented to person and confused Exam Limitations: no limitations HEENT normocephalic, head/scalp atraumatic and moist oral mucous membranes HEENT Narrative: Moderate hearing loss, dentition is poor, Mallampati is 2-3, no thrush Eyes PERRL, EOMs intact bilaterally and conjunctivae normal Eyes Narrative: No scleral icterus Neck no lymphadenopathy and supple Neck Narrative: Trachea midline, no thyroid enlargement Resp normal respiratory effort, no retractions, no use of accessory muscles and No clear to auscultation bilaterally Auscultation: Negative for crackles, rhonchi or wheezes Cardio regular rate, regular rhythm, S1 normal heart sound, S2 normal heart sound, no rub, no gallops and no clicks; Negative for no murmurs Cardio Narrative: Soft S2, 4 out of 6 systolic murmur loudest at right upper sternal border that radiates to both carotids GI normal to inspection, nondistended, normoactive bowel sounds, soft to palpation and non-tender Extremity Extremity Narrative: Pedal pulses are 1+ bilaterally, radial pulses 2+ bilaterally, 2+ bilateral lower extremity pitting edema, no cyanosis or clubbing Skin no wounds, skin turgor normal and no jaundice Skin Narrative: Scattered actinic keratoses Neuro CN's II-XII intact bilaterally, moves all extremities and no focal motor deficits Neuro Narrative: Scattered ecchymosis Speech: speech normal Psych affect normal Psych Narrative: Pleasant, eye contact is good, less agitated that he is in the hospital today and I think it helps that his daughter is at the bedside Weight / BMI Weight Weight: 93.2 kg Body Mass Index (BMI) 28.8 ABG / Lab / Microbiology Data 10/03/23 07:30 10/04/23 05:30 Laboratory: Laboratory Results - last 24 hr 10/03/23 16:07: POC Glucose 113 H 10/04/23 05:10: POC Glucose 105 10/04/23 05:30: PT 28.9 H, INR 2.8, Sodium 136, Potassium 3.7, Chloride 101, Carbon Dioxide 27.0, Anion Gap 8, BUN 58 H, Creatinine 2.32 H, Estim Creat Clear Calc 26.66, Est GFR (MDRD) Af Amer 35 L, Est GFR (MDRD) Non-Af 29 L, BUN/Creatinine Ratio 25.0 H, Glucose 88, Calcium 10.0, Phosphorus 2.9, Magnesium 2.4 10/04/23 11:19: POC Glucose 137 H D/C Instructions Discharge Diet: No restrictions Meaningful Use Info Meaningful Use Meaningful Use Diagnoses (Choose all that apply): None applicable Ischemic Stroke Statin Dosing Therapy Reference: STATIN DOSE THERAPY REFERENCE: * Patients > 75 years receive moderate or high dose statin therapy. * Patients 75 years or YOUNGER should receive HIGH intensity statin dose unless contraindicated. You will be required to document reason for non-treatment if statin daily dose does not meet guidelines. HIGH DOSE STATIN THERAPY DAILY Atorvastatin > than or = to 40 mg Rosuvastatin > than or = to 20 mg Amlodipine + Atorvastatin > than or = to 2.5/40 mg Ezetimibe + Simvastatin 10/80 mg Simvastatin 80mg Discharge Plan Admission Admit Date/Time: 10/02/23 13:48 Primary Reason for Your Visit: Falls/weakness Attending Provider: Maddy Baugh Primary Care Provider: Luba Zavala [employer] MAINFRAME DEVELOPER Consulting Providers: Daquan Lutz; Willard Andre; Aminata Martin; Stefany Perez; Susanne Renee [employer] MAINFRAME DEVELOPER Discharge Orders/Prescriptions Prescriptions: Continued docusate sodium 100 mg capsule 100 mg PO BID dutasteride 0.5 mg capsule 0.5 mg PO DAILY potassium chloride 20 mEq tablet extended release 20 meq PO DAILY PreserVision AREDS 4,296 mcg-226 mg-90 mg capsule 1 cap PO BID tamsulosin 0.4 mg capsule 0.4 mg PO DAILY warfarin 3 mg tablet 3 mg PO SUMOWEFRSA warfarin 2 mg tablet 2 mg PO TUTH polyethylene glycol 3350 [Miralax] 17 gram/dose powder 34 g PO DAILY PRN (Reason: constipation) magnesium hydroxide [Milk of Magnesia] 400 mg/5 mL suspension 15 ml PO Q3-4D PRN (Reason: constipation) bisacodyl 10 mg suppository 10 mg MA DAILY PRN (Reason: constipation) acetaminophen 325 mg tablet 650 mg PO Q4H PRN (Reason: fever or pain) fluticasone propionate 50 mcg/actuation spray,suspension 1 spray INTRANASAL DAILY metolazone 2.5 mg tablet 2.5 mg PO UD Qty: 1 0RF Rx Instructions: QOD and hold if systolic blood pressure is less than 90 metoprolol succinate 50 mg tablet extended release 24 hr 50 mg PO DAILY Qty: 1 0RF Rx Instructions: Hold for systolic blood pressure less than 90 bumetanide 1 mg tablet 1 mg PO DAILY Qty: 1 0RF Rx Instructions: Hold if systolic blood pressure is less than 90 Jardiance 10 mg tablet 10 mg PO DAILY Qty: 30 11RF Discontinued oxybutynin chloride 5 mg tablet extended release 24hr 5 mg PO BID Rx Instructions: ER PER MAR dapagliflozin propanediol 5 mg tablet 5 mg PO DAILY Referrals / Follow Up: Luba Zavala [employer] MAINFRAME DEVELOPER, [employer]IN[employer] DEVELOPER-C [Primary Care Provider] - Disposition Disposition (needs filled in before D/C Order can be placed): Hospice in Medical Facility Charges/Coding Visit Charges Inpatient E&M: 71779 SNF Disch >30 Min
--- NOTE | 2023-10-04 14:26 | PCM.TXEXTCAR ---
Diet Diet Order/Speech Therapy: 10/02/23 14:30 Diet: regular Food consistency:: Regular Liquid Consistency:: Regular/Thin Fluid restriction:: None Routine Orders/Code Status O2 Frequency: PRN (For comfort) Routine Lab Work: INR (In 5 to 7 days) Code Status: DNRCC Suggestions for Active Care Change Position every (hours): 2 Problem/Diagnosis (1) Debility: Status: Acute Code(s): R53.81 - Other malaise (2) Acidosis, lactic: Status: Acute Code(s): E87.20 - Acidosis, unspecified (3) Chronic kidney disease: Status: Chronic Code(s): N18.9 - Chronic kidney disease, unspecified (4) Acute dyspnea: Status: Acute Code(s): R06.00 - Dyspnea, unspecified (5) VAZQUEZ (dyspnea on exertion): Status: Acute Code(s): R06.09 - Other forms of dyspnea (6) Congestive heart failure: Status: Acute Code(s): I50.9 - Heart failure, unspecified Allergies/Procedures Done in Hospital Allergies No Known Allergies Allergy (Verified 10/02/23 10:21) Type of Care/Length of Stay Estimated LOS: More Than 30 Days Type of Care Needed: Inpt Hospice Facility Rehab Potential: None Prognosis: None Additional Orders/Day of Discharge Day of Discharge: 10/04/23 Discharge Plan Admission Admit Date/Time: 10/02/23 13:48 Primary Reason for Your Visit: Falls/weakness Attending Provider: Maddy Baugh Primary Care Provider: Luba Zavala NP Consulting Providers: Daquan Lutz; Willard Andre; Aminata Martin; Stefany Perez; Susanne Renee [employer]ELTER HELPER Discharge Orders/Prescriptions Prescriptions: Continued docusate sodium 100 mg capsule 100 mg PO BID dutasteride 0.5 mg capsule 0.5 mg PO DAILY potassium chloride 20 mEq tablet extended release 20 meq PO DAILY PreserVision AREDS 4,296 mcg-226 mg-90 mg capsule 1 cap PO BID tamsulosin 0.4 mg capsule 0.4 mg PO DAILY warfarin 3 mg tablet 3 mg PO SUMOWEFRSA warfarin 2 mg tablet [address] [facility] polyethylene glycol 3350 [Miralax] 17 gram/dose powder 34 g PO DAILY PRN (Reason: constipation) magnesium hydroxide [Milk of Magnesia] 400 mg/5 mL suspension 15 ml PO Q3-4D PRN (Reason: constipation) bisacodyl 10 mg suppository 10 mg MD DAILY PRN (Reason: constipation) acetaminophen 325 mg tablet 650 mg PO Q4H PRN (Reason: fever or pain) fluticasone propionate 50 mcg/actuation spray,suspension 1 spray INTRANASAL DAILY metolazone 2.5 mg tablet 2.5 mg PO UD Qty: 1 0RF Rx Instructions: QOD and hold if systolic blood pressure is less than 90 metoprolol succinate 50 mg tablet extended release 24 hr 50 mg PO DAILY Qty: 1 0RF Rx Instructions: Hold for systolic blood pressure less than 90 bumetanide 1 mg tablet 1 mg PO DAILY Qty: 1 0RF Rx Instructions: Hold if systolic blood pressure is less than 90 Jardiance 10 mg tablet 10 mg PO DAILY Qty: 30 11RF Discontinued oxybutynin chloride 5 mg tablet extended release 24hr 5 mg PO BID Rx Instructions: ER PER MAR dapagliflozin propanediol 5 mg tablet 5 mg PO DAILY Referrals / Follow Up: Luba Zavala VARNISH MELTER HELPER, [employer]ELTER HELPER-C [Primary Care Provider] - Disposition Disposition (needs filled in before D/C Order can be placed): Hospice in Medical Facility
--- NOTE | 2023-10-04 15:07 | CASEMGMT ---
Addendum entered by Shayy Villanueva 10/04/23 15:15: SW updated [facility] on transport time of 6pm Original Note: Social Work- SW updated [facility] that transport is set up for 6pm to [facility]. LUDWIN Hidalgo
--- NOTE | 2023-10-04 15:09 | CASEMGMT ---
Patient was accepted at [facility]. FERNANDO called Physicians and arranged for patient to get picked up at 6p. SW sent orders and meat pickler time to [facility]. SW also sent orders and meat pickler time to [facility]. PASRR was completed in [facility] system. FERNANDO Lucas called patient's daughter and notified her of meat pickler. FERNANDO notified RN, city secretary, and patient. Plan: d/c to [facility] under [facility]. Physicians will transport patient via wheelchair at 6p. [place] DEL REAL
--- NOTE | 2023-10-04 15:35 | PHA.DC.MR.R ---
Pharmacy [facility] Reconciliation Pharmacy Service has performed discharge medication reconciliation for this patient. The patient's discharge medication list was reviewed for discrepancies and discrepancies were resolved. Medications at Discharge Home Medications acetaminophen 325 mg tablet 650 mg PO Q4H PRN fever or pain 12/05/22 bisacodyl 10 mg rectal suppository 10 mg MO DAILY PRN constipation 12/05/22 docusate sodium 100 mg capsule 100 mg PO BID 12/05/22 dutasteride 0.5 mg capsule 0.5 mg PO DAILY 12/05/22 magnesium hydroxide 400 mg/5 mL oral suspension (Milk of Magnesia) 15 ml PO Q3-4D PRN constipation 12/05/22 polyethylene glycol 3350 17 gram/dose oral powder (Miralax) 34 g PO DAILY PRN constipation 12/05/22 potassium chloride 20 mEq tablet,extended release 20 meq PO DAILY 12/05/22 tamsulosin 0.4 mg capsule 0.4 mg PO DAILY 12/05/22 vitamins A,C,V-ryjy-gukniz 4,296 mcg-226 mg-90 mg capsule (PreserVision AREDS) 1 cap PO BID 12/05/22 warfarin 2 mg tablet 2 mg PO TUTH 12/05/22 warfarin 3 mg tablet 3 mg PO SUMOWEFRSA 12/05/22 empagliflozin 10 mg tablet (Jardiance) 10 mg PO DAILY #30 tabs 07/13/23 fluticasone propionate 50 mcg/actuation nasal spray,suspension 1 spray intranasal DAILY 09/25/23 bumetanide 1 mg tablet 1 mg PO DAILY #1 TAB 10/04/23 metolazone 2.5 mg tablet 2.5 mg PO UD #1 TAB 10/04/23 metoprolol succinate 50 mg tablet,extended release 24 hr 50 mg PO DAILY #1 TAB 10/04/23
[2023-10-04 16:39] LABS: Bedside Glucose 107 mg/dL (74-106)
[2023-10-04 17:09] VITALS: BP 102/72; PULSE 76; RESP 14; TEMP 36.5; O2SAT 98
== END 2023-10-04 14:17 | disposition hospice, inpatient (51) ==
LOC: ED 13:44 → PCU 14:23
PROVIDERS: Emergency Provider Emergency Medicine; PCP Nurse Practitioner Adult Health; Visit Provider Internal Medicine
DX: I13.0 Hypertensive heart and chronic kidney disease with heart failure and stage 1 through stage 4 chronic kidney disease, or unspecified chronic kidney disease (principal); N18.4 Chronic kidney disease, stage 4 (severe); I27.20 Pulmonary hypertension, unspecified; I50.42 Chronic combined systolic (congestive) and diastolic (congestive) heart failure; F03.90 Unspecified dementia, unspecified severity, without behavioral disturbance, psychotic disturbance, mood disturbance, and anxiety; I48.0 Paroxysmal atrial fibrillation; K59.00 Constipation, unspecified; E87.1 Hypo-osmolality and hyponatremia; E78.5 Hyperlipidemia, unspecified; N40.1 Benign prostatic hyperplasia with lower urinary tract symptoms; R53.81 Other malaise; Z79.01 Long term (current) use of anticoagulants; E87.20 Acidosis, unspecified; F17.220 Nicotine dependence, chewing tobacco, uncomplicated; Z86.718 Personal history of other venous thrombosis and embolism; Z86.711 Personal history of pulmonary embolism; Z79.899 Other long term (current) drug therapy; N13.8 Other obstructive and reflux uropathy
CPT/HCPCS: 36415; 71045; 80048; 80053; 82962; 83605; 83735; 83880; 84100; 84484; 85025; 85610; 93005; 97162; 97166; 97530; 99221; 99285; 99406; A4216; G0378